=== PATIENT | female | born 1995 | race Caucasian/White ===

== ENCOUNTER 2019-05-04 12:20 | Emergency (ER) | payer BC ==
[~2019-05-04] VITALS: Ht 167.7 cm; Wt 102.2 kg
[2019-05-04] MEDS ORDERED: PROCHLORPERAZINE 10 MG/2ML INJ (COMPAZINE) IM ONE (12:45)
[2019-05-04] MEDS ORDERED: diphenhydrAMINE 50 MG/ML INJ (BENADRYL) IM ONE (12:45)
[2019-05-04] MEDS ORDERED: KETOROLAC 60 MG/2 ML VIAL IM ONE (12:45)
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
[2019-05-04 13:34] VITALS: BP 118/83
--- OUTSIDE RECORDS SUMMARY | 2019-05-29 08:00 | XMS REPORT | Continuity of Care Document ---
Author Organization Unknown Address Unknown Phone Unavailable Allergies Active Description Code Type Severity Reaction Onset Reported/Identified Relationship to Patient Clinical Status Yes No Known Drug Allergies [id number] Drug Allergy Unknown N/A 05/04/2019 Medications There is no data. Problems Date Dx Coded Attending Type Code Diagnosis Diagnosed By 05/09/2019 HELADIO YOUNG APRN Ot R51 HEADACHE Procedures There is no data. Results There is no data. Encounters ACCT No. Visit Date/Time Discharge Status Pt. Type Provider Facility Loc./Unit Complaint [id number] 02/28/2019 08:20:00 02/28/2019 23:59: 59 [facility] [id number] 05/04/2019 12:22:00 019 13:40:00 DIS Outpatient HELADIO YOUNG APRN Via [facility] ER NECK PAIN/MIGRAINE
== END 2019-05-04 13:40 | disposition home or self-care (01) ==
LOC: ER 12:22
DX: R51 Headache (principal)
CPT/HCPCS: 96372; 99284

== ENCOUNTER 2019-08-18 16:06 | Emergency (ER) | payer BC ==
[~2019-08-18] VITALS: Ht 167 cm; Wt 117.1 kg
--- NOTE | 2019-08-18 16:20 | ED Cough/URI ---
General Chief Complaint: Respiratory Problems Stated Complaint: SOB,CHEST CONGESTED,COUGHING,DIZZY Source: patient Exam Limitations: no limitations History of Present Illness Date Seen by Provider: Aug 18, 2019 Time Seen by Provider: 16:19 Initial Comments To ER with shortness of breath chest congested coughing dizziness for 2 days, s aw someone yesterday and got Zithromax but is not doing any better yet. History of asthma, has a inhaler at home states that she's been using it quite a bit today without much improvement. Timing/Duration: just prior to arrival Severity/Quality: dry cough Associated Symptoms: cough, shortness of breath Allergies and Home Medications Allergies Coded Allergies: cephalexin (Verified Allergy, Severe, RASH, 08/18/19) Patient Home Medication List Home Medication List Reviewed: Yes Review of Systems Review of Systems Constitutional: see HPI EENTM: see HPI Respiratory: see HPI, cough, short of breath Cardiovascular: no symptoms reported Genitourinary: no symptoms reported Musculoskeletal: no symptoms reported Skin: no symptoms reported Psychiatric/Neurological: No Symptoms Reported Past Vuhszxa-Vopelh-Rfdlsd Hx Patient Social History 2nd Hand Smoke Exposure: No Recent Foreign Travel: No Contact w/Someone Who Travel: No Recent Hopitalizations: No Seasonal Allergies Seasonal Allergies: Yes Past Medical History Surgeries: No Asthma Cardiac: No Neurological: Yes Headaches /Migraines Female Reproductive Disorders: Ovarian Cyst Genitourinary: No Gastrointestinal: No Musculoskeletal: No Endocrine: No HEENT: No Cancer: No Psychosocial: No Integumentary: No Blood Disorders: No Adverse Reaction/Blood Tranf: No Physical Exam Vital Signs - First Documented 08/18/19 16:16 Temp 36.9 Pulse 102 Resp 16 B/P (MAP) 137/88 (104) Pulse Ox 99 O2 Delivery Room Air Capillary Refill : Height: '" Weight: lbs. oz. kg; 36.00 BMI Method: General Appearance: WD/WN, no apparent distress Eyes: Bilateral Eye Normal Inspection, Bilateral Eye PERRL, Bilateral Eye EOMI HEENT: PERRL/EOMI, normal ENT inspection Neck: non-tender, full range of motion Respiratory: lungs clear, normal breath sounds, no respiratory distress, no accessory muscle use Gastrointestinal: normal bowel sounds, soft Neurologic/Psychiatric: alert, normal mood/affect, oriented x 3 Skin: normal color, warm/dry Progress/Results/Core Measures Suspected Sepsis SIRS Temperature: Pulse: Respiratory Rate: Blood Pressure / Mean: Results/Orders Micro Results Microbiology 08/18/19 Influenza Types A,B Antigen (FLAVIO) - Final, Complete My Orders Orders - HELADIO YOUNG APRN Chest Pa/Lat (2 View) (08/18/19 16:17) Influenza A And B Antigens (08/18/19 16:17) Prednisone Tablet (Deltasone Tablet) (08/18/19 16:30) Albuterol/Ipra Inhalation Soln (Duoneb I (08/18/19 16:30) Svn Small Volume Nebulizer (08/18/19 16:17) Ct Chest Wo (08/18/19 16:45) Promethazine/ Codeine Syrup (Phenergan W (08/18/19 17:00) Medications Given in ED Current Medications Medications Dose Ordered Sig/Seamus Route Start Time Stop Time Status Last Admin Dose Admin Albuterol/ Ipratropium 3 ml ONCE ONCE INH 08/18/19 16:30 08/18/19 16:31 DC 08/18/19 16:33 3 ML Prednisone 60 mg ONCE ONCE PO 08/18/19 16:30 08/18/19 16:31 DC 08/18/19 16:47 60 MG Promethazine HCl/ Codeine 5 ml ONCE ONCE PO 08/18/19 17:00 08/18/19 17:01 DC 08/18/19 17:02 5 ML Vital Signs/I&O 08/18/19 08/18/19 16:16 16:33 Temp 36.9 Pulse 102 Resp 16 B/P (MAP) 137/88 (104) Pulse Ox 99 O2 Delivery Room Air Room Air Capillary Refill : Departure Impression Primary Impression: Asthma exacerbation Disposition: HOME, SELF-CARE Condition: Stable Departure-Patient Inst. Decision time for Depature: 16:43 Referrals: NO,LOCAL PHYSICIAN (PCP/Family) Primary Care Physician Patient Instructions: Asthma in Adults Add. Discharge Instructions: 1. Return to ER for any concerns 2. Follow-up with your doctor next week 3. All discharge instructions reviewed with patient and/or family. Voiced understanding. Scripts Prednisone (Prednisone) 20 Mg Tab 40 MG PO DAILY, #6 TAB 0 Refills Prov: HELADIO YOUNG APRN 08/18/19 Work/School Note: Work Release Form Date Seen in the Emergency Department: Aug 18, 2019 Return to Work: Aug 21, 2019 HELADIO YOUNG APRN Aug 18, 2019 16:20
[2019-08-18] MEDS ORDERED: RT-ALBUTEROL/IPRATROPIUM 3 ML (DUONEB) VIAL INH ONE (16:30)
[2019-08-18] MEDS ORDERED: predniSONE 20 MG TAB PO ONE (16:30)
--- NOTE | 2019-08-18 16:32 | Diagnostic Imaging Report ---
HISTORY: Bronchitis, asthma, and strep throat. TECHNIQUE: Two views of the chest. COMPARISON: None. FINDINGS: There are increased airspace opacities in the left lower lobe. No pleural effusion or pneumothorax is seen. The cardiac silhouette is normal in size and contour. IMPRESSION: 1. Airspace opacities in the left lower lobe, may represent infection in the appropriate clinical setting. Dictated by: Dictated on workstation # [id number]
[2019-08-18] MEDS ORDERED: PROMETHAZINE/ CODEINE SYRUP 5 ML UDC PO ONE (17:00)
[2019-08-18] MEDS ORDERED: PRD20T PO (17:09)
[2019-08-18] MEDS ORDERED: PROM5SYR PO (17:09)
--- NOTE | 2019-08-18 17:18 | Diagnostic Imaging Report ---
PROCEDURE: CT chest without contrast. TECHNIQUE: Multiple contiguous axial images were obtained through the chest without the use of intravenous contrast. Auto Exposure Controls were utilized during the CT exam to meet ALARA standards for radiation dose reduction. INDICATION: Cough, strep throat. FINDINGS: No pleural effusion or empyema. There is trace alvino-fissural atelectasis in the lingula. Lungs are otherwise clear and well expanded. No focal consolidation. No lung mass. No pleural or pericardial effusion. There is a small amount of residual thymic tissue in the anterior mediastinum. No evidence for adenopathy within the hardik or mediastinum. The thoracic inlet is unremarkable. Supraclavicular fossa is unremarkable. No bony destructive process. The visualized upper abdomen is unremarkable. IMPRESSION: Unremarkable chest CT. Dictated by: Dictated on workstation # [id number]
[2019-08-18 17:23] VITALS: BP 137/88
--- OUTSIDE RECORDS SUMMARY | 2019-08-19 00:03 | XMS REPORT | Continuity of Care Document ---
Author Organization Unknown Address Unknown Phone Unavailable Allergies Active Description Code Type Severity Reaction Onset Reported/Identified Relationship to Patient Clinical Status Yes No Known Drug Allergies [id number] Drug Allergy Unknown N/A 05/04/2019 Yes cephalexin [id number] Drug Allerg y Severe RASH 08/18/2019 Medications There is no data. Problems Date Dx Coded Attending Type Code Diagnosis Diagnosed By 05/04/2019 HELADIO YOUNG APRN Ot R51 HEADACHE 05/09/2019 HELADIO YOUNG APRN Ot R51 HEADACHE Procedures There is no data. Results Test Result Range Influenza virus A and B antigen detectio n - 08/18/19 16:24 FLU RESULT NEGATIVE FOR INFLUENZA A AND B ANTIGENS BY [facility] NRG Encounters ACCT No. Visit Date/Time Discharge Status Pt. Type Provider Facility Loc./Unit Complaint [id number] 08/18/2019 16:08:00 020 17:23:00 DIS Emergency HELADIO YOUNG APRN Via [facility] ER SOB,CHEST CONGESTED,COU GHING,DIZZY [id number] 05/04/2019 12:22:00 019 13:40:00 DIS Emergency HELADIO YOUNG APRN Via [facility] ER NECK PAIN/MIGRAINE [id number] 06/02/2019 15:20:00 06/02/2019 23:59: 59 [facility]
== END 2019-08-18 17:23 | disposition home or self-care (01) ==
LOC: EDUNIT# 16:06 → ER 16:08
DX: J45.901 Unspecified asthma with (acute) exacerbation (principal); Z88.1 Allergy status to other antibiotic agents
CPT/HCPCS: 71046; 71250; 87804; 94640

== ENCOUNTER 2020-01-14 14:57 | Emergency (ER) | payer BC ==
[~2020-01-14] VITALS: Ht 167 cm; Wt 116.0 kg
[~2020-01-14 14:57] MED LIST: PRD20T PO; PROM5SYR PO
[2020-01-14 15:35] LABS: BASOPHILS # (AUTO) 0.1 10^3/uL (0.0-0.1); BASOPHILS % (AUTO) 1 % (0-10); EOSINOPHILS # (AUTO) 0.2 10^3/uL (0.0-0.3); EOSINOPHILS % (AUTO) 3 % (0-10); HEMATOCRIT 42 % (35-52); HEMOGLOBIN 14.2 G/DL (11.5-16.0); LYMPHOCYTES # (AUTO) 2.4 X 10^3 (1.0-4.0); LYMPHOCYTES % (AUTO) 26 % (12-44); MEAN CORPUSCULAR HEMOGLOBIN 31 PG (25-34); MEAN CORPUSCULAR HGB CONC 34 G/DL (32-36); MEAN CORPUSCULAR VOLUME 90 FL (80-99); MEAN PLATELET VOLUME 9.7 FL (7.4-10.4); MONOCYTES # (AUTO) 1.1 X 10^3 (0.0-1.0); MONOCYTES % (AUTO) 12 % (0-12); NEUTROPHILS # (AUTO) 5.5 X 10^3 (1.8-7.8); NEUTROPHILS % (AUTO) 60 % (42-75); PLATELET COUNT 438 10^3/uL (130-400); RED CELL DISTRIBUTION WIDTH 13.3 % (10.0-14.5); WHITE BLOOD COUNT 9.2 10^3/uL (4.3-11.0)
--- NOTE | 2020-01-14 15:48 | Diagnostic Imaging Report ---
Indication: Shortness of breath Portable chest 3:31 PM Heart size and pulmonary vascularity are normal. Lungs are clear. There are no effusions or pneumothoraces. IMPRESSION: Negative chest Dictated by: Dictated on workstation # [id number]
[2020-01-14 15:52] LABS: ALANINE AMINOTRANSFERASE 20 U/L (0-55); ALBUMIN 4.3 GM/DL (3.2-4.5); ALKALINE PHOSPHATASE 76 U/L (40-136); BILIRUBIN,TOTAL 0.2 MG/DL (0.1-1.0); BUN/CREATININE RATIO 16; CALCIUM 9.9 MG/DL (8.5-10.1); CARBON DIOXIDE 21 MMOL/L (21-32); CHLORIDE 105 MMOL/L (98-107); GFR ESTIMATED > 60; GLUCOSE 114 MG/DL (70-105); POTASSIUM 4.6 MMOL/L (3.6-5.0); SODIUM 139 MMOL/L (135-145); TOTAL PROTEIN 7.9 GM/DL (6.4-8.2)
[2020-01-14 15:56] LABS: ERYTHROCYTE SEDIMENTATION RATE 20 MM/HR (0-20)
--- OUTSIDE RECORDS SUMMARY | 2020-01-14 15:57 | XMS REPORT | Continuity of Care Document ---
Author Organization Unknown Address Unknown Phone Unavailable Allergies Active Description Code Type Severity Reaction Onset Reported/Identified Relationship to Patient Clinical Status Yes No Known Drug Allergies [id number] Drug Allergy Unknown N/A 05/04/2019 Yes cephalexin [id number] Drug Allerg y Severe RASH 08/18/2019 Medications There is no data. Problems Date Dx Coded Attending Type Code Diagnosis Diagnosed By 05/04/2019 HELADIO YOUNG APRN Ot R51 HEADACHE 05/09/2019 HELADIO YOUNG APRN Ot R51 HEADACHE 08/18/2019 HELADIO YOUNG APRN Ot J45.901 UNSPECIFIED ASTHMA WITH (ACUTE) EXACERBA 08/18/2019 HELADIO YOUNG APRN Ot R05 COUGH 08/18/2019 HELADIO YOUNG APRN Ot Z88 .1 ALLERGY STATUS TO OTHER ANTIBIOTIC AGENT 08/21/2019 HELADIO YOUNG APRN Ot J45.901 UNSPECIFIED ASTHMA WITH (ACUTE) EXACERBA 08/21/2019 HELADIO YOUNG APRN Ot R05 COUGH 08/21/2019 HELADIO YOUNG APRN Ot Z88 .1 ALLERGY STATUS TO OTHER ANTIBIOTIC AGENT Procedures There is no data. Results Test Result Range Influenza virus A and B antigen detectio n - 08/18/19 16:24 FLU RESULT NEGATIVE FOR INFLUENZA A AND B ANTIGENS BY [facility] Complete blood count (CBC) with automate d white blood cell (WBC) differential - 01/14/20 15:14 Blood leukocytes automated count (number/volume) 9.2 10*3/uL 4.3-11.0 Blood erythrocytes automated count (number/volume) 4.66 10*6/uL 4.35-5.85 Venous blood hemoglobin measurement (mass/volume) 14.2 g/dL 11.5-16.0 Blood hematocrit (volume fraction) 42 % 35-52 Automated erythrocyte mean corpuscular volume 90 [ foz_us] 80-99 Automated erythrocyte mean corpuscular h emoglobin (mass per erythrocyte) 31 pg 25-34 Automated erythrocyte mean corpuscular h emoglobin concentration measurement (mass/volume) 34 g/dL 32-36 Automated erythrocyte distribution width ratio 13. 3 % 10.0- 14.5 Automated blood platelet count (count/volume) 438 10*3/uL 130-400 Automated blood platelet mean volume measurement 9.7 [foz_us] 7.4-10.4 Automated blood neutrophils/100 leukocytes 60 % 42-75 Automated blood lymphocytes/100 leukocytes 26 % 12-44 Blood monocytes/100 leukocytes 12 % 0-12 Automated blood eosinophils/100 leukocytes 3 % 0-10 Automated blood basophils/100 leukocytes 1 % 0-10 Blood neutrophils automated count (number/volume) 5.5 10*3 1.8-7.8 Blood lymphocytes automated count (number/volume) 2.4 10*3 1.0-4.0 Blood monocytes automated count (number/volume) 1. 1 10*3 0.0-1.0 Automated eosinophil count 0.2 10*3/uL 0 .0-0.3 Automated blood basophil count (count/volume) 0.1 10*3/uL 0.0-0.1 Comprehensive metabolic panel - 01/14/20 15:14 Serum or plasma sodium measurement (moles/volume) 139 mmol/L 135-145 Serum or plasma potassium measurement (moles/volume) 4.6 mmol/L 3.6-5.0 Serum or plasma chloride measurement (moles/volume) 105 mmol/L 98-107 Carbon dioxide 21 mmol/L 21-32 Serum or plasma anion gap determination (moles/volume) 13 mmol/L 5-14 Serum or plasma urea nitrogen measurement (mass/volume ) 11 mg/dL 7-18 Serum or plasma creatinine measurement (mass/volume) 0.70 mg/dL 0.60-1.30 Serum or plasma urea nitrogen/creatinine mass ratio 16 NRG Serum or plasma creatinine measurement w ith calculation of estimated glomerular filtration rate > NRG Serum or plasma glucose measurement (mass/volume) 114 mg/dL 70-105 Serum or plasma calcium measurement (mass/volume) 9.9 mg/dL 8.5-10.1 Serum or plasma total bilirubin measurement (mass/volu me) 0.2 mg/dL 0.1-1.0 Serum or plasma alkaline phosphatase quang surement (enzymatic activity/volume) 76 U/L 40-136 Serum or plasma aspartate aminotransfera se measurement (enzymatic activity/volume) 15 U/L 5-34 Serum or plasma alanine aminotransferase measurement (enzymatic activity/volume) 20 U/L 0-55 Serum or plasma protein measurement (mass/volume) 7.9 g/dL 6.4-8.2 Serum or plasma albumin measurement (mass/volume) 4.3 g/dL 3.2-4.5 CALCIUM CORRECTED 9.7 mg/dL 8.5-10.1 Serum ragweed IgE antibody assay - 01/13 15:14 Serum ragweed IgE antibody assay 217 U/L 125-220 Serum or plasma C reactive protein measu rement (mass/volume) - 01/14/20 15:14 Serum or plasma C reactive protein measurement (mass/v olume) 0.93 mg/dL 0.00-0.50 Encounters ACCT No. Visit Date/Time Discharge Status Pt. Type Provider Facility Loc./Unit Complaint [id number] 08/18/2019 16:08:00 020 17:23:00 DIS Emergency HELADIO YOUNG APRN Via [facility] ER SOB,CHEST CONGESTED,COU GHING,DIZZY [id number] 05/04/2019 12:22:00 019 13:40:00 DIS Emergency HELADIO YOUNG APRN Via [facility] ER NECK PAIN/MIGRAINE [id number] 01/14/2020 15:35:00 Document Registration
--- NOTE | 2020-01-14 16:05 | ED Respiratory ---
General Chief Complaint: Respiratory Problems Stated Complaint: SOA Nursing Triage Note: ARRIVED VIA AMB TO ROOM 10. COMPLAINS OF SOA, DIARRHEA, SORE THROAT, AND CHILLS X3 DAYS. STATES SHE WORKS IN A [facility] WHERE 33 RESIDENTS ARE COVID POSITIVE. Source: patient Exam Limitations: no limitations History of Present Illness Date Seen by Provider: Jan 14, 2020 Time Seen by Provider: 15:15 Initial Comments Patient works that [facility] where there are apparently 33 residents and staff at her COVID positive. She has had cold- like symptoms including sore throat, runny nose, fevers, chills and body aches as well as shortness of air over the last 3 days. She is concerned about being COVID 19 positive. She did have test at [facility] yesterday but has not heard the results. She states she is more short of air today and feels terrible. Timing/Duration: getting worse, other (3 days) Severity: moderate Prior Episodes/Possible Cause: no prior episodes Associated Symptoms: cough, fever/chills, muscle aches, nasal congestion, nasal drainage, shortness of breath, sore throat Allergies and Home Medications Allergies Coded Allergies: cephalexin (Verified Allergy, Severe, RASH, 08/18/19) Home Medications No Active Prescriptions or Reported Meds Patient Home Medication List Home Medication List Reviewed: Yes Review of Systems Review of Systems Constitutional: see HPI, chills, fever EENTM: see HPI Respiratory: see HPI Cardiovascular: no symptoms reported Gastrointestinal: No abdominal pain, No nausea, No vomiting Genitourinary: no symptoms reported Musculoskeletal: no symptoms reported Psychiatric/Neurological: Anxiety; Denies Weakness All Other Systems Reviewed Negative Unless Noted: Yes Past Bcvnrqd-Tgapez-Vbyaqm Hx Past Med/Social Hx: Reviewed Nursing Past Med/Soc Hx Patient Social History Alcohol Use: Denies Use Recreational Drug Use: No Smoking Status: Never a Smoker 2nd Hand Smoke Exposure: No Recent Foreign Travel: No Contact w/Someone Who Travel: No Recent Infectious Disease Expo: No Recent Hopitalizations: No Seasonal Allergies Seasonal Allergies: Yes Past Medical History Surgeries: No Asthma Cardiac: No Neurological: Yes Headaches /Migraines Female Reproductive Disorders: Ovarian Cyst Genitourinary: No Gastrointestinal: No Musculoskeletal: No Endocrine: No HEENT: No Cancer: No Psychosocial: No Integumentary: No Blood Disorders: No Adverse Reaction/Blood Tranf: No Family Medical History Reviewed Nursing Family Hx Physical Exam Vital Signs - First Documented 01/14/20 15:00 Temp 36.9 Pulse 111 Resp 20 B/P (MAP) 162/95 (117) Pulse Ox 100 O2 Delivery Room Air Capillary Refill : Less Than 3 Seconds Height: '" Weight: lbs. oz. kg; 41.00 BMI Method: General Appearance: WD/WN, no apparent distress HEENT: PERRL/EOMI, pharynx normal Neck: full range of motion, supple Respiratory: lungs clear, normal breath sounds Cardiovascular: regular rate, rhythm, no murmur Gastrointestinal: non tender, soft Extremities: non-tender, normal inspection Neurologic/Psychiatric: alert, oriented x 3 Skin: normal color, warm/dry Progress/Results/Core Measures Suspected Sepsis Recent Fever Within 48 Hours: Yes Infection Criteria Present: Suspected New Infection New/Unexplained Altered Menta: No Sepsis Screen: Possible Severe Sepsis Risk SIRS Temperature: Pulse: 111 Respiratory Rate: 20 Laboratory Tests 01/14/20 15:14: White Blood Count 9.2 Blood Pressure 162 /95 Mean: 117 Laboratory Tests 01/14/20 15:14: Creatinine 0.70, Platelet Count 438H, Total Bilirubin 0.2 Results/Orders Lab Results Laboratory Tests Test 01/14/20 15:14 01/14/20 15:28 Range/Units White Blood Count 9.2 4.3-11.0 10^3/uL Red Blood Count 4.66 4.35-5.85 10^6/uL Hemoglobin 14.2 11.5-16.0 G/DL Hematocrit 42 35-52 % Mean Corpuscular Volume 90 80-99 FL Mean Corpuscular Hemoglobin 31 25-34 PG Mean Corpuscular Hemoglobin Concent 34 32-36 G/DL Red Cell Distribution Width 13.3 10.0-14.5 % Platelet Count 438 H 130-400 10^3/uL Mean Platelet Volume 9.7 7.4-10.4 FL Neutrophils (%) (Auto) 60 42-75 % Lymphocytes (%) (Auto) 26 12-44 % Monocytes (%) (Auto) 12 0-12 % Eosinophils (%) (Auto) 3 0-10 % Basophils (%) (Auto) 1 0-10 % Neutrophils # (Auto) 5.5 1.8-7.8 X 10^3 Lymphocytes # (Auto) 2.4 1.0-4.0 X 10^3 Monocytes # (Auto) 1.1 H 0.0-1.0 X 10^3 Eosinophils # (Auto) 0.2 0.0-0.3 10^3/uL Basophils # (Auto) 0.1 0.0-0.1 10^3/uL Erythrocyte Sedimentation Rate 20 0-20 MM/HR D-Dimer 0.45 0.00-0.49 UG/ML Sodium Level 139 135-145 MMOL/L Potassium Level 4.6 3.6-5.0 MMOL/L Chloride Level 105 98-107 MMOL/L Carbon Dioxide Level 21 21-32 MMOL/L Anion Gap 13 5-14 MMOL/L Blood Urea Nitrogen 11 7-18 MG/DL Creatinine 0.70 0.60-1.30 MG/DL Estimat Glomerular Filtration Rate > 60 BUN/Creatinine Ratio 16 Glucose Level 114 H 70-105 MG/DL Calcium Level 9.9 8.5-10.1 MG/DL Corrected Calcium 9.7 8.5-10.1 MG/DL Total Bilirubin 0.2 0.1-1.0 MG/DL Aspartate Amino Transf (AST/SGOT) 15 5-34 U/L Alanine Aminotransferase (ALT/SGPT) 20 0-55 U/L Alkaline Phosphatase 76 40-136 U/L Lactate Dehydrogenase 217 125-220 U/L C-Reactive Protein High Sensitivity 0.93 H 0.00-0.50 MG/DL Total Protein 7.9 6.4-8.2 GM/DL Albumin 4.3 3.2-4.5 GM/DL Procalcitonin 0.02 <0.10 NG/ML My Orders Orders - NANCY YANG MD Cbc With Automated Diff (01/14/20 15:20) Comprehensive Metabolic Panel (01/14/20 15:20) Hs C Reactive Protein (01/14/20 15:20) Fibrin Degradation Products (01/14/20 15:20) Procalcitonin (Pct) (01/14/20 15:20) Erythrocyte Sedimentation Rate (01/14/20 15:20) LDH (01/14/20 15:20) Chest 1 View, Ap/Pa Only (01/14/20 15:27) Vital Signs/I&O 01/14/20 15:00 Temp 36.9 Pulse 111 Resp 20 B/P (MAP) 162/95 (117) Pulse Ox 100 O2 Delivery Room Air Capillary Refill : Less Than 3 Seconds Blood Pressure Mean: 117 Progress Note : Progress Note Seen and evaluated. IV, labs, chest x-ray and COVID-19 swab obtained. Monitor patient. 1625: I did discuss the case with [facility] and her swab results are not back. We will continue with our testing here. I did discuss COVID-19 quarantine and isolation restrictions and informed her that she is assumed to have COVID-19 currently and she will need to remain quarantine didn't help results are back and then per the direction of the health department or follow- up instructions. Patient verbalize understanding. Discharged home with return precautions. Patient verbalize understanding instructions and agreement with plan. O2 sat 99% on room air. Diagnostic Imaging Diagonstic Imaging: Xray Plain Films/CT/US/NM/MRI: chest Comments [facility], [place] NAME: GAGANDEEP PENNY [facility] REC#: [id number] PT STATUS: REG ER : 1995 PHYSICIAN: NANCY YANG MD ADMIT DATE: 01/14/20/ER Signed Date of Exam:01/14/20 CHEST 1 VIEW, AP/PA ONLY Indication: Shortness of breath Portable chest 3:31 PM Heart size and pulmonary vascularity are normal. Lungs are clear. There are no effusions or pneumothoraces. IMPRESSION: Negative chest Dictated by: Dictated on workstation # [id number] Dict: 01/14/20 1546 Trans: 01/14/20 1547 [id number] Interpreted by: NANCY ESPINAL MD Electronically signed by: NANCY ESPINAL MD 01/14/20 1547 Reviewed: Reviewed by Me Departure Impression Primary Impression: Viral infection Additional Impression: COVID-19 evaluation Disposition: 01 HOME, SELF-CARE Condition: Stable Departure-Patient Inst. Decision time for Depature: 16:31 Referrals: NO,LOCAL PHYSICIAN (PCP/Family) Primary Care Physician Patient Instructions: Coronavirus Disease 2019 (COVID-19) (DC), Viral Syndrome (DC) Add. Discharge Instructions: All discharge instructions reviewed with patient and/or family. Voiced understanding. Drink plenty of fluids and get plenty of rest. You will need to remain on quarantine until test results are noted. If they are negative, you will need to be isolated for 3 days after symptoms resolve. If they are positive, the health department will call you and direct isolation timeframe. You may take ibuprofen 600 mg every 8 hours as needed for fever or pain. You may take Tylenol/acetaminophen 1000 mg every 8 hours as needed for fever.. Return for worse pain, fever, vomiting, weakness, breathing problems or other concerns as needed. Follow-up with your Dr. as needed but blood them know about your concerns for symptoms. Scripts No Active Prescriptions or Reported Meds Copy Copies To 1: SHANTELLE FERREIRA TIMOTHY D MD Jan 14, 2020 16:05
--- NOTE | 2020-01-14 16:23 | NUR ---
IN TALKING TO THE PT AT THIS TIME.
[2020-01-14 16:41] VITALS: BP 120/84
[2020-01-15] MEDS ORDERED: ONDA4TAB11 PO (17:14)
[2020-01-15] MEDS ORDERED: PROM25TA14 PO (17:31)
== END 2020-01-14 16:41 | disposition home or self-care (01) ==
LOC: EDUNIT# 14:57 → ER 14:58
DX: B34.9 Viral infection, unspecified (principal); Z88.1 Allergy status to other antibiotic agents; U07.1 COVID-19
CPT/HCPCS: 71045; 80053; 83615; 84145; 85025; 85379; 85652; 86141; 99284; U0002; 36415; 87635

== ENCOUNTER 2020-01-15 14:40 | Emergency (ER) | payer BC ==
[~2020-01-15] VITALS: Ht 167.7 cm; Wt 114.7 kg
[2020-01-15] MEDS ORDERED: LACTATED RINGERS 1,000 ML IV ONE (15:11)
[2020-01-15] MEDS ORDERED: ONDANSETRON 4 MG/2 ML (SDV) Z0FRAN IVP ONE (15:15)
[2020-01-15] MEDS ORDERED: LACTATED RINGERS 1,000 ML IV SCH (15:15)
[2020-01-15] MEDS ORDERED: KETOROLAC 30 MG/ML VIAL IVP ONE (15:15)
[2020-01-15] MEDS ORDERED: PANTOPRAZOLE 40 MG (PROTONIX) VIAL IV ONE (15:15)
--- NOTE | 2020-01-15 15:15 | ED Abdominal Pain ---
General Chief Complaint: Fever-Adult/Adol Stated Complaint: COVID SYMPTOMS/COVID + Nursing Triage Note: Pt reports being COVID-19 positive. Pt c/o YEPEZ, abdominal pain, SOB, and periodic fever. Pt last took tylenol, IBU, excedrin and bendryl at noon today. Pt crying during assessment and reports worsening symptoms. Sepsis Screen: Possible Severe Sepsis Risk Source of Information: Patient Exam Limitations: No Limitations History of Present Illness Date Seen by Provider: Jan 15, 2020 Time Seen by Provider: 14:49 Initial Comments Patient presents ER by private conveyance with chief complaint that yesterday she was seen in the ER and diagnosed with COVID-19. She is having worsening shortness of breath, epigastric abdominal pain after nausea and vomiting all night and diarrhea. She has been unable to keep any fluids down. She does not have anything for nausea. She is not on any antibiotics or treatment at this time. She does not have a primary care doctor or any significant medical history except for asthma. Allergies and Home Medications Allergies Coded Allergies: cephalexin (Verified Allergy, Severe, RASH, 08/18/19) Home Medications Ondansetron 4 Mg Tab.rapdis, 4 MG PO Q6H PRN for NAUSEA/VOMITING Prescribed by: MARCELO BARRETT on 01/15/20 0944 Patient Home Medication List Home Medication List Reviewed: Yes Review of Systems Review of Systems Constitutional: chills, fever, malaise EENTM: No Blurred Vision, No Double Vision Respiratory: Cough, Shortness of Air Cardiovascular: Denies Chest Pain, Denies Edema Gastrointestinal: Denies Abdomen Distended, Denies Abdominal Pain Genitourinary: Denies Burning, Denies Frequency Musculoskeletal: No back pain, No joint pain Skin: No pruritus, No rash Psychiatric/Neurological: Denies Headache, Denies Numbness All Other Systems Reviewed Negative Unless Noted: Yes Past Axqtksx-Ycxgmi-Ithyhn Hx Patient Social History Alcohol Use: Denies Use Recreational Drug Use: No Smoking Status: Never a Smoker 2nd Hand Smoke Exposure: No Recent Foreign Travel: No Contact w/Someone Who Travel: No Recent Infectious Disease Expo: Yes (pt reports [place] COVID-19 from work) Recent Hopitalizations: No Seasonal Allergies Seasonal Allergies: Yes Past Medical History Surgeries: No Asthma Cardiac: No Neurological: Yes Headaches /Migraines Female Reproductive Disorders: Ovarian Cyst Genitourinary: No Gastrointestinal: No Musculoskeletal: No Endocrine: No HEENT: No Cancer: No Psychosocial: No Integumentary: No Blood Disorders: No Adverse Reaction/Blood Tranf: No Physical Exam Vital Signs Vital Signs - First Documented 01/15/20 14:40 Temp 37.3 Pulse 103 Resp 30 B/P (MAP) 140/88 (105) Pulse Ox 97 O2 Delivery Room Air Capillary Refill : Less Than 3 Seconds Height/Weight/BMI Height: '" Weight: lbs. oz. kg; 40.00 BMI Method: General Appearance: WD/WN, mild distress HEENT: PERRL/EOMI, pharynx normal Neck: full range of motion, normal inspection Respiratory: lungs clear, normal breath sounds, no respiratory distress, no accessory muscle use Cardiovascular: normal peripheral pulses, regular rate, rhythm, no edema Peripheral Pulses: 2+ Radial Pulses (R), 2+ Radial Pulses (L) Gastrointestinal: normal bowel sounds, non tender, soft Extremities: normal range of motion, non-tender, normal inspection, normal capillary refill Neurologic/Psychiatric: alert, normal mood/affect, oriented x 3 Skin: normal color, warm/dry Progress/Results/Core Measures Results/Orders Lab Results Laboratory Tests Test 01/15/20 15:05 01/15/20 15:25 01/15/20 16:15 Range/Units Urine Color YELLOW Urine Clarity SL CLOUDY Urine pH 7.0 5-9 Urine Specific [place] 1.020 1.016-1.022 Urine Protein NEGATIVE NEGATIVE Urine Glucose (UA) NEGATIVE NEGATIVE Urine Ketones NEGATIVE NEGATIVE Urine Nitrite NEGATIVE NEGATIVE Urine Bilirubin NEGATIVE NEGATIVE Urine Urobilinogen 0.2 < = 1.0 MG/DL Urine Leukocyte Esterase NEGATIVE NEGATIVE Urine RBC (Auto) NEGATIVE NEGATIVE Urine RBC 0-2 /HPF Urine WBC 0-2 /HPF Urine Squamous Epithelial Cells 5-10 /HPF Urine Crystals PRESENT H /LPF Urine Amorphous Sediment LARGE [place] PHOSPHATE H /LPF Urine Bacteria TRACE /HPF Urine Casts NONE /LPF Urine Mucus NEGATIVE /LPF Urine Culture Indicated NO White Blood Count 7.7 4.3-11.0 10^3/uL Red Blood Count 4.60 4.35-5.85 10^6/uL Hemoglobin 14.0 11.5-16.0 G/DL Hematocrit 41 35-52 % Mean Corpuscular Volume 90 80-99 FL Mean Corpuscular Hemoglobin 30 25-34 PG Mean Corpuscular Hemoglobin Concent 34 32-36 G/DL Red Cell Distribution Width 13.4 10.0-14.5 % Platelet Count 371 130-400 10^3/uL Mean Platelet Volume 9.3 7.4-10.4 FL Neutrophils (%) (Auto) 75 42-75 % Lymphocytes (%) (Auto) 10 L 12-44 % Monocytes (%) (Auto) 13 H 0-12 % Eosinophils (%) (Auto) 2 0-10 % Basophils (%) (Auto) 1 0-10 % Neutrophils # (Auto) 5.7 1.8-7.8 X 10^3 Lymphocytes # (Auto) 0.8 L 1.0-4.0 X 10^3 Monocytes # (Auto) 1.0 0.0-1.0 X 10^3 Eosinophils # (Auto) 0.2 0.0-0.3 10^3/uL Basophils # (Auto) 0.0 0.0-0.1 10^3/uL Sodium Level 139 135-145 MMOL/L Potassium Level 3.9 3.6-5.0 MMOL/L Chloride Level 106 98-107 MMOL/L Carbon Dioxide Level 25 21-32 MMOL/L Anion Gap 8 5-14 MMOL/L Blood Urea Nitrogen 14 7-18 MG/DL Creatinine 0.69 0.60-1.30 MG/DL Estimat Glomerular Filtration Rate > 60 BUN/Creatinine Ratio 20 Glucose Level 91 70-105 MG/DL Calcium Level 9.4 8.5-10.1 MG/DL Corrected Calcium 9.2 8.5-10.1 MG/DL Total Bilirubin 0.2 0.1-1.0 MG/DL Aspartate Amino Transf (AST/SGOT) 13 5-34 U/L Alanine Aminotransferase (ALT/SGPT) 21 0-55 U/L Alkaline Phosphatase 80 40-136 U/L Total Protein 7.7 6.4-8.2 GM/DL Albumin 4.3 3.2-4.5 GM/DL Lipase 17 8-78 U/L Blood Gas Puncture Site RIGHT RADIAL Blood Gas Patient Temperature 37.3 Arterial Blood pH 7.41 7.37-7.43 Arterial Blood Partial Pressure CO2 39 35-45 MMHG Arterial Blood Partial Pressure O2 93 79-93 MMHG Arterial Blood HCO3 24 23-27 MMOL/L Arterial Blood Total CO2 25.6 21.0-31.0 MMOL/L Arterial Blood Oxygen Saturation 97 94-100 % Arterial Blood Base Excess 0.4 -2.5-2.5 MMOL/L Demarco Test POSITIVE Blood Gas Ventilator Setting NO Blood Gas Inspired Oxygen N/A My Orders Orders - MARCELO BARRETT Ua Culture If Indicated (01/15/20 14:48) Urine Bedside (01/15/20 14:48) Cbc With Automated Diff (01/15/20 15:11) Comprehensive Metabolic Panel (01/15/20 15:11) Chest 1 View, Ap/Pa Only (01/15/20 15:11) Ketorolac Injection (Toradol Injection) (01/15/20 15:15) Ondansetron Injection (Zofran Injectio (01/15/20 15:15) Ed Iv/Invasive Line Start (01/15/20 15:11) Lactated Ringers (Lr 1000 Ml Iv Solution (01/15/20 15:11) Lactated Ringers (Lr 1000 Ml Iv Solution (01/15/20 15:15) Lipase (01/15/20 15:11) Pantoprazole Injection (Protonix Injecti (01/15/20 15:15) Arterial Blood Gas (01/15/20 16:20) Medications Given in ED Current Medications Medications Dose Ordered Sig/Seamus Route Start Time Stop Time Status Last Admin Dose Admin Ketorolac Tromethamine 30 mg ONCE ONCE IVP 01/15/20 15:15 01/15/20 15:16 DC 01/15/20 16:02 30 MG Lactated Ringer's 1,000 ml @ 0 mls/hr Q0M ONCE IV 01/15/20 15:11 01/15/20 15:14 DC 01/15/20 16:02 1,000 MLS/HR Ondansetron HCl 8 mg ONCE ONCE IVP 01/15/20 15:15 01/15/20 15:16 DC 01/15/20 16:02 8 MG Pantoprazole 40 mg ONCE ONCE IV 01/15/20 15:15 01/15/20 15:16 DC 01/15/20 16:02 40 MG Vital Signs/I&O 01/15/20 14:40 Temp 37.3 Pulse 103 Resp 30 B/P (MAP) 140/88 (105) Pulse Ox 97 O2 Delivery Room Air Blood Pressure Mean: 105 Progress Progress Note : Time: 17:10 Progress Note Ondansetron, Toradol, 2 L of fluids. She needs help with symptom management. She does not have any acute respiratory distress. Her oxygen sats are 97-100% on room air. We will obtain some basic labs, ABG and a chest x-ray to confirm our suspicion that she only needs help with symptom management at this time. Patient has unremarkable labs, imaging and ABG. Plan to set her up with Phenergan, ondansetron and Imodium. Patient states she feels much better after the intervention and does not need anything else for nausea or pain at this time. She is in agreement with this plan. Diagnostic Imaging Diagonstic Imaging: Xray Plain Films/CT/US/NM/MRI: chest [facility] [place], [place] NAME: GAGANDEEP PENNY [facility] REC#: [id number] PT STATUS: REG ER : 1995 PHYSICIAN: MARCELO BARRETT MD ADMIT DATE: 01/15/20/ER Signed Date of Exam:01/15/20 CHEST 1 VIEW, AP/PA ONLY INDICATION: soa COMPARISON: 01/14/2020. FINDINGS: Single frontal view of the chest demonstrates normal heart size and pulmonary vascularity. The lungs are well aerated and clear. No large pleural effusion or pneumothorax is seen. The visualized osseous structures show no acute abnormalities. IMPRESSION: 1. No acute cardiopulmonary process. Dictated by: Dictated on workstation # [id number] Dict: 01/15/20 1627 Trans: 01/15/20 1702 [id number] Interpreted by: MALLORY MALLORY MD Electronically signed by: MALLORY MALLORY MD 01/15/20 1701 Reviewed: Reviewed by Me Departure Impression Primary Impression: COVID-19 virus detected Additional Impressions: Nausea & vomiting Qualified Codes: R11.2 - Nausea with vomiting, unspecified Diarrhea due to COVID-19 Disposition: 01 HOME, SELF-CARE Condition: Improved Departure-Patient Inst. Decision time for Depature: 16:56 Referrals: NO,LOCAL PHYSICIAN (PCP/Family) Primary Care Physician Patient Instructions: Viral Gastroenteritis, Coronavirus Disease 2019 (COVID- 19) (DC) Add. Discharge Instructions: Drink lots of fluids. Sports drinks are encouraged. Tylenol 1000 mg every 8 hours as necessary for pain or fever. Ibuprofen 800 mg every 8 hours as necessary for pain or fever. Ondansetron one tablet every 6 hours as necessary for nausea or vomiting. Phenergan 1 tablet every 6 hours as necessary for nausea or vomiting. This may cause some mild drowsiness. Imodium 2 tablets followed by one tablet every 4 hours afterwards that he still having loose, watery stools. If he cannot control your symptoms or are having severe shortness of breath then please return to the ER promptly. All discharge instructions reviewed with patient and/or family. Voiced kunal walden. Scripts Promethazine HCl (Promethazine Tablet) 25 Mg Tablet 25 MG PO Q6H PRN for NAUSEA/VOMITING, #20 TAB 0 Refills Prov: MARCELO BARRETT 01/15/20 Ondansetron (Ondansetron Odt) 4 Mg Tab.rapdis 4 MG PO Q6H PRN for NAUSEA/VOMITING, #20 TAB 0 Refills Prov: MARCELO BARRETT 01/15/20 MARCELO BARRETT Jan 15, 2020 15:15
[2020-01-15 15:27] LABS: BILIRUBIN,URINE NEGATIVE (NEGATIVE); CLARITY,URINE SL CLOUDY; COLOR,URINE YELLOW; GLUCOSE, URINE (UA) NEGATIVE (NEGATIVE); KETONES,URINE NEGATIVE (NEGATIVE); LEUKOCYTE ESTERASE ,URINE NEGATIVE (NEGATIVE); NITRITE,URINE NEGATIVE (NEGATIVE); PROTEIN,URINE NEGATIVE (NEGATIVE)
[2020-01-15 15:36] LABS: AMORPHOUS SEDIMENT,UR LARGE AMOR PHOSPHATE /LPF; BACTERIA,URINE TRACE /HPF; RBC,URINE 0-2 /HPF; WBC,URINE 0-2 /HPF
[2020-01-15 15:41] LABS: BASOPHILS % (AUTO) 1 % (0-10); EOSINOPHILS # (AUTO) 0.2 10^3/uL (0.0-0.3); EOSINOPHILS % (AUTO) 2 % (0-10); HEMATOCRIT 41 % (35-52); LYMPHOCYTES # (AUTO) 0.8 X 10^3 (1.0-4.0); LYMPHOCYTES % (AUTO) 10 % (12-44); MEAN CORPUSCULAR HEMOGLOBIN 30 PG (25-34); MEAN CORPUSCULAR HGB CONC 34 G/DL (32-36); MEAN CORPUSCULAR VOLUME 90 FL (80-99); MEAN PLATELET VOLUME 9.3 FL (7.4-10.4); MONOCYTES % (AUTO) 13 % (0-12); NEUTROPHILS # (AUTO) 5.7 X 10^3 (1.8-7.8); NEUTROPHILS % (AUTO) 75 % (42-75); PLATELET COUNT 371 10^3/uL (130-400); RED CELL DISTRIBUTION WIDTH 13.4 % (10.0-14.5); WHITE BLOOD COUNT 7.7 10^3/uL (4.3-11.0)
[2020-01-15 16:01] LABS: ALANINE AMINOTRANSFERASE 21 U/L (0-55); ALBUMIN 4.3 GM/DL (3.2-4.5); ALKALINE PHOSPHATASE 80 U/L (40-136); BILIRUBIN,TOTAL 0.2 MG/DL (0.1-1.0); BUN/CREATININE RATIO 20; CALCIUM 9.4 MG/DL (8.5-10.1); CARBON DIOXIDE 25 MMOL/L (21-32); CHLORIDE 106 MMOL/L (98-107); CREATININE SERUM 0.69 MG/DL (0.60-1.30); GFR ESTIMATED > 60; GLUCOSE 91 MG/DL (70-105); LIPASE 17 U/L (8-78); POTASSIUM 3.9 MMOL/L (3.6-5.0); SODIUM 139 MMOL/L (135-145); TOTAL PROTEIN 7.7 GM/DL (6.4-8.2)
--- OUTSIDE RECORDS SUMMARY | 2020-01-15 16:13 | XMS REPORT | Continuity of Care Document ---
Author Organization Unknown Address Unknown Phone Unavailable Allergies Active Description Code Type Severity Reaction Onset Reported/Identified Relationship to Patient Clinical Status Yes No Known Drug Allergies [id number] Drug Allergy Unknown N/A 05/04/2019 Yes cephalexin [id number] Drug Allerg y Severe RASH 08/18/2019 Medications [...] INFLUENZA A AND B ANTIGENS BY [facility] Complete blood count (CBC) with automate d [...] ragweed IgE antibody assay 217 U/L 125-220 PROCALCITONIN (PCT) - 01/14/20 15:14 PROCALCITONIN (PCT) 0.02 ng/mL <0.10 Fibrin D-dimer FEU measurement in platel et poor plasma (mass/volume) - 01/14/20 15:14 Fibrin D-dimer FEU measurement in platelet poor plasma (mass/volume) 0.45 ug/mL 0.00-0.49 Erythrocyte sedimentation rate by ramiro gren method - 01/14/20 15:14 Erythrocyte sedimentation rate by westergren method 20 mm 0- 20 Serum or plasma C reactive protein measu rement (mass/volume) - 01/14/20 15:14 Serum or plasma C reactive protein measurement (mass/v olume) 0.93 mg/dL 0.00-0.50 Coronavirus SARS-CoV-2 SO 2019 - 0 15:28 Coronavirus Ab [Units/volume] in Serum DETECTED Not Detecte Complete urinalysis with reflex to cultu re - 01/15/20 15:05 Urine color determination YELLOW NRG Urine clarity determination SL CLOUDY N RG Urine pH measurement by test strip 7.0 5-9 Specific gravity of urine by test strip 1.020 1.016-1.022 Urine protein assay by test strip, semi-quantitative NEGATIVE NEGATIVE Urine glucose detection by automated test strip NE GATIVE NEGATIVE Erythrocytes detection in urine sediment by light micr oscopy NEGATIVE NEGATIVE Urine ketones detection by automated test strip NE GATIVE NEGATIVE Urine nitrite detection by test strip NEGATIVE NEGATIVE Urine total bilirubin detection by test strip NEGA TIVE NEGATIVE Urine urobilinogen measurement by automated test strip (mass/volume) 0.2 mg/dL < = 1.0 Urine leukocyte esterase detection by dipstick NEG ATIVE NEGATIVE Automated urine sediment erythrocyte cou nt by microscopy (number/high power field) [HPF] NRG Automated urine sediment leukocyte count by microscopy (number/high power field) [HPF] NRG Bacteria detection in urine sediment by light microsco py TRACE NRG Squamous epithelial cells detection in u rine sediment by light microscopy 5-10 NRG Crystals detection in urine sediment by light microsco py PRESENT NRG Casts detection in urine sediment by light microscopy NONE NRG Mucus detection in urine sediment by light microscopy NEGATIVE NRG Complete urinalysis with reflex to culture NO NRG Amorphous sediment detection in urine sediment by ligh t microscopy LARGE NADEEM PHOSPHATE NRG Complete blood count (CBC) with automate d white blood cell (WBC) differential - 01/15/20 15:25 Blood leukocytes automated count (number/volume) 7.7 10*3/uL 4.3-11.0 Blood erythrocytes automated count (number/volume) 4.60 10*6/uL 4.35-5.85 Venous blood hemoglobin measurement (mass/volume) 14.0 g/dL 11.5-16.0 Blood hematocrit (volume fraction) 41 % 35-52 Automated erythrocyte mean corpuscular volume 90 [ foz_us] 80-99 Automated erythrocyte mean corpuscular h emoglobin (mass per erythrocyte) 30 pg 25-34 Automated erythrocyte mean corpuscular h emoglobin concentration measurement (mass/volume) 34 g/dL 32-36 Automated erythrocyte distribution width ratio 13. 4 % 10.0- 14.5 Automated blood platelet count (count/volume) 371 10*3/uL 130-400 Automated blood platelet mean volume measurement 9.3 [foz_us] 7.4-10.4 Automated blood neutrophils/100 leukocytes 75 % 42-75 Automated blood lymphocytes/100 leukocytes 10 % 12-44 Blood monocytes/100 leukocytes 13 % 0-12 Automated blood eosinophils/100 leukocytes 2 % 0-10 Automated blood basophils/100 leukocytes 1 % 0-10 Blood neutrophils automated count (number/volume) 5.7 10*3 1.8-7.8 Blood lymphocytes automated count (number/volume) 0.8 10*3 1.0-4.0 Blood monocytes automated count (number/volume) 1. 0 10*3 0.0-1.0 Automated eosinophil count 0.2 10*3/uL 0 .0-0.3 Automated blood basophil count (count/volume) 0.0 10*3/uL 0.0-0.1 Comprehensive metabolic panel - 01/15/20 15:25 Serum or plasma sodium measurement (moles/volume) 139 mmol/L 135-145 Serum or plasma potassium measurement (moles/volume) 3.9 mmol/L 3.6-5.0 Serum or plasma chloride measurement (moles/volume) 106 mmol/L 98-107 Carbon dioxide 25 mmol/L 21-32 Serum or plasma anion gap determination (moles/volume) 8 mmol/L 5-14 Serum or plasma urea nitrogen measurement (mass/volume ) 14 mg/dL 7-18 Serum or plasma creatinine measurement (mass/volume) 0.69 mg/dL 0.60-1.30 Serum or plasma urea nitrogen/creatinine mass ratio 20 NRG Serum or plasma creatinine measurement w ith calculation of estimated glomerular filtration rate > NRG Serum or plasma glucose measurement (mass/volume) 91 mg/dL 70-105 Serum or plasma calcium measurement (mass/volume) 9.4 mg/dL 8.5-10.1 Serum or plasma total bilirubin measurement (mass/volu me) 0.2 mg/dL 0.1-1.0 Serum or plasma alkaline phosphatase quang surement (enzymatic activity/volume) 80 U/L 40-136 Serum or plasma aspartate aminotransfera se measurement (enzymatic activity/volume) 13 U/L 5-34 Serum or plasma alanine aminotransferase measurement (enzymatic activity/volume) 21 U/L 0-55 Serum or plasma protein measurement (mass/volume) 7.7 g/dL 6.4-8.2 Serum or plasma albumin measurement (mass/volume) 4.3 g/dL 3.2-4.5 CALCIUM CORRECTED 9.2 mg/dL 8.5-10.1 Lipase - 01/15/20 15:25 Lipase 17 U/L 8-78 Encounters ACCT No. Visit Date/Time Discharge Status Pt. Type Provider Facility Loc./Unit Complaint [id number] 01/14/2020 14:58:00 020 16:41:00 DIS Emergency NANCY YANG MD [facility] ER SOA [id number] 08/18/2019 16:08:00 020 17:23:00 DIS Emergency HELADIO YOUNG APRN [facility] ER SOB,CHEST CONGESTED,COU GHING,DIZZY [id number] 05/04/2019 12:22:00 019 13:40:00 DIS Emergency HELADIO YOUNG APRN [facility] ER NECK PAIN/MIGRAINE [id number] 01/15/2020 15:37:00 Document Registration
[2020-01-15 16:27] LABS: ABG BASE EXCESS 0.4 MMOL/L (-2.5-2.5); ABG OXYGEN SATURATION 97 % (94-100); ABG PCO2 39 MMHG (35-45); ABG PH 7.41 (7.37-7.43); ABG PO2 93 MMHG (79-93); ABG TCO2 25.6 MMOL/L (21.0-31.0)
--- NOTE | 2020-01-15 16:29 | Diagnostic Imaging Report ---
INDICATION: soa COMPARISON: 01/14/2020. FINDINGS: Single frontal view of the chest demonstrates normal heart size and pulmonary vascularity. The lungs are well aerated and clear. No large pleural effusion or pneumothorax is seen. The visualized osseous structures show no acute abnormalities. IMPRESSION: 1. No acute cardiopulmonary process. Dictated by: Dictated on workstation # [id number]
[2020-01-15 16:30] LABS: ALLENS TEST POSITIVE; VENTILATOR NO
[2020-01-15 16:31] LABS: PATIENT TEMP 37.3
[2020-01-15] MEDS ORDERED: ONDA4TAB11 PO (17:14)
[2020-01-15] MEDS ORDERED: PROM25TA14 PO (17:31)
[2020-01-15 17:34] VITALS: BP 121/78
== END 2020-01-15 17:27 | disposition home or self-care (01) ==
LOC: EDUNIT# 14:40 → ER 14:42
DX: U07.1 COVID-19 (principal); R11.2 Nausea with vomiting, unspecified; A08.39 Other viral enteritis; Z88.1 Allergy status to other antibiotic agents
CPT/HCPCS: 36415; 71045; 80053; 81000; 82805; 83690; 84703; 85025

== ENCOUNTER 2020-09-22 18:55 | Emergency (ER) | payer BC, MEDICAID ==
[~2020-09-22] VITALS: Ht 167.7 cm; Wt 113.4 kg
[~2020-09-22 18:55] MED LIST changes: +ONDA4TAB11 PO; +PROM25TA14 PO
--- NOTE | 2020-09-22 19:06 | ED General ---
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 The pain and mild spotting started 3 days ago. She states that she sees Dr. Roman from obstetrics. She had a an ultrasound in the clinic 2 weeks ago and was told everything looked normal. She is . No difficulties with the first . She reports her blood type to be A+. She denies the passage of any clots or tissue but did notice passage of some bright red blood. Timing/Duration: 12-24 Hours Severity: Moderate Associated Systoms: Denies Symptoms Allergies and Home Medications Allergies Coded Allergies: cephalexin (Verified Allergy, Severe, RASH, 08/18/19) Home Medications Ondansetron 4 Mg Tab.rapdis, 4 MG PO Q6H PRN for NAUSEA/VOMITING Prescribed by: MARCELO BARRETT on 01/15/20 1714 Promethazine HCl 25 Mg Tablet, 25 MG PO Q6H PRN for NAUSEA/VOMITING Prescribed by: MARCELO BARRETT on 01/15/20 1731 Patient Home Medication List Home Medication List Reviewed: Yes Review of Systems Review of Systems Constitutional: see HPI EENTM: see HPI Respiratory: no symptoms reported Cardiovascular: no symptoms reported Genitourinary: no symptoms reported Musculoskeletal: no symptoms reported Skin: no symptoms reported Psychiatric/Neurological: No Symptoms Reported Hematologic/Lymphatic: No Symptoms Reported Past Dvqstap-Cxbgqy-Nhezmu Hx Patient Social History 2nd Hand Smoke Exposure: No Recent Hopitalizations: No Seasonal Allergies Seasonal Allergies: Yes Past Medical History Surgeries: No Asthma Cardiac: No Neurological: Yes Headaches /Migraines Female Reproductive Disorders: Ovarian Cyst Genitourinary: No Gastrointestinal: No Musculoskeletal: No Endocrine: No HEENT: No Cancer: No Psychosocial: No Integumentary: No Blood Disorders: No Adverse Reaction/Blood Tranf: No Physical Exam Vital Signs Vital Signs - First Documented 09/22/20 18:55 Temp 36.3 Pulse 96 Resp 16 B/P (MAP) 148/96 (113) Pulse Ox 97 O2 Delivery Room Air Capillary Refill : Height, Weight, BMI Height: '" Weight: lbs. oz. kg; 40.00 BMI Method: General Appearance: No Apparent Distress, WD/WN, Obese, Other (Alert and oriented very pleasant no distress hemodynamically stable.) Eyes: Bilateral Eye Normal Inspection, Bilateral Eye PERRL Respiratory: No Accessory Muscle Use, No Respiratory Distress Cardiovascular: Regular Rate, Rhythm, Normal Peripheral Pulses Gastrointestinal: Normal Bowel Sounds, Non Tender, Soft Genital/Rectal: Other Extremity: Normal Capillary Refill, Normal Inspection Neurologic/Psychiatric: Alert, Oriented x3 Skin: Normal Color, Warm/Dry Comments Bedside vaginal exam with Iza POWELL at the bedside reveals no blood in the vaginal vault. There is some mild clear whitish discharge from the closed cervical os. Progress/Results/Core Measures Suspected Sepsis SIRS Temperature: Pulse: Respiratory Rate: Laboratory Tests 09/22/20 19:17: White Blood Count 9.1 Blood Pressure / Mean: Laboratory Tests 09/22/20 19:17: Creatinine 0.57L, Platelet Count 346 Results/Orders Lab Results Laboratory Tests Test 09/22/20 19:17 Range/Units White Blood Count 9.1 4.3-11.0 10^3/uL Red Blood Count 4.33 3.80-5.11 10^6/uL Hemoglobin 13.2 11.5-16.0 g/dL Hematocrit 39 35-52 % Mean Corpuscular Volume 89 80-99 fL Mean Corpuscular Hemoglobin 31 25-34 pg Mean Corpuscular Hemoglobin Concent 34 32-36 g/dL Red Cell Distribution Width 13.2 10.0-14.5 % Platelet Count 346 130-400 10^3/uL Mean Platelet Volume 9.2 9.0-12.2 fL Immature Granulocyte % (Auto) 0 % Neutrophils (%) (Auto) 64 42-75 % Lymphocytes (%) (Auto) 26 12-44 % Monocytes (%) (Auto) 9 0-12 % Eosinophils (%) (Auto) 1 0-10 % Basophils (%) (Auto) 0 0-10 % Neutrophils # (Auto) 5.8 1.8-7.8 10^3/uL Lymphocytes # (Auto) 2.3 1.0-4.0 10^3/uL Monocytes # (Auto) 0.8 0.0-1.0 10^3/uL Eosinophils # (Auto) 0.1 0.0-0.3 10^3/uL Basophils # (Auto) 0.0 0.0-0.1 10^3/uL Immature Granulocyte # (Auto) 0.0 0.0-0.1 10^3/uL Urine Color YELLOW Urine Clarity CLEAR Urine pH 6.0 5-9 Urine Specific [place] 1.025 H 1.016-1.022 Urine Protein NEGATIVE NEGATIVE Urine Glucose (UA) NEGATIVE NEGATIVE Urine Ketones NEGATIVE NEGATIVE Urine Nitrite NEGATIVE NEGATIVE Urine Bilirubin NEGATIVE NEGATIVE Urine Urobilinogen 0.2 < = 1.0 MG/DL Urine Leukocyte Esterase NEGATIVE NEGATIVE Urine RBC (Auto) NEGATIVE NEGATIVE Urine RBC NONE /HPF Urine WBC 0-2 /HPF Urine Squamous Epithelial Cells 2-5 /HPF Urine Crystals NONE /LPF Urine Bacteria MODERATE H /HPF Urine Casts NONE /LPF Urine Mucus SMALL H /LPF Urine Culture Indicated NO Sodium Level 137 135-145 MMOL/L Potassium Level 4.1 3.6-5.0 MMOL/L Chloride Level 105 98-107 MMOL/L Carbon Dioxide Level 19 L 21-32 MMOL/L Anion Gap 13 5-14 MMOL/L Blood Urea Nitrogen 7 7-18 MG/DL Creatinine 0.57 L 0.60-1.30 MG/DL Estimat Glomerular Filtration Rate > 60 BUN/Creatinine Ratio 12 Glucose Level 99 70-105 MG/DL Calcium Level 9.4 8.5-10.1 MG/DL Human Chorionic Gonadotropin, Quant 97368 H <5 MIU/ML My Orders Orders - 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 Cbc With Automated Diff (09/22/20 18:58) Basic Metabolic Panel (09/22/20 18:58) Hcg,Quantitative (09/22/20 18:58) Ua Culture If Indicated (09/22/20 18:58) Abo Rh Type (09/22/20 18:58) Wet Prep (09/22/20 20:40) Neisseria Gonorrhea Swab (09/22/20 20:40) Genital Culture (09/22/20 20:40) Chlamydia Trachomatis Swab (09/22/20 20:40) Rx-Hydrocodone/Apap 5-325 Mg (Rx-Vicodin (09/22/20 20:45) Vital Signs/I&O 09/22/20 18:55 Temp 36.3 Pulse 96 Resp 16 B/P (MAP) 148/96 (113) Pulse Ox 97 O2 Delivery Room Air Capillary Refill : Departure Communication (Admissions) Bedside ultrasound reveals motion with cardiac activity with a heart rate measured at 156. is worried because they are having her lift greater than 150 pounds while at work. We will give her a note with a weight limit of 10 pounds. Impression Primary Impression: Vaginal bleeding affecting early Disposition: HOME, SELF-CARE Condition: Stable Departure-Patient Inst. Decision time for Depature: 20:41 Referrals: NO,LOCAL PHYSICIAN (PCP/Family) Primary Care Physician Patient Instructions: Bleeding In Early Add. Discharge Instructions: 1. Call Dr. Roman in the morning to notify her of your symptoms. Return to ER for any worsening. Medication as directed. Call the scheduling department tomorrow morning to figure out what time they want you here for the ultrasound. 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 Copy Copies To 1: ALCON ROMAN PETER J APRN Sep 22, 2020 19:06
[2020-09-22 19:25] LABS: BASOPHILS % (AUTO) 0 % (0-10); EOSINOPHILS # (AUTO) 0.1 10^3/uL (0.0-0.3); EOSINOPHILS % (AUTO) 1 % (0-10); HEMATOCRIT 39 % (35-52); HEMOGLOBIN 13.2 g/dL (11.5-16.0); LYMPHOCYTES # (AUTO) 2.3 10^3/uL (1.0-4.0); LYMPHOCYTES % (AUTO) 26 % (12-44); MEAN CORPUSCULAR HEMOGLOBIN 31 pg (25-34); MEAN CORPUSCULAR HGB CONC 34 g/dL (32-36); MEAN CORPUSCULAR VOLUME 89 fL (80-99); MEAN PLATELET VOLUME 9.2 fL (9.0-12.2); MONOCYTES # (AUTO) 0.8 10^3/uL (0.0-1.0); MONOCYTES % (AUTO) 9 % (0-12); NEUTROPHILS # (AUTO) 5.8 10^3/uL (1.8-7.8); NEUTROPHILS % (AUTO) 64 % (42-75); PLATELET COUNT 346 10^3/uL (130-400); WHITE BLOOD COUNT 9.1 10^3/uL (4.3-11.0)
[2020-09-22 19:33] LABS: BILIRUBIN,URINE NEGATIVE (NEGATIVE); CLARITY,URINE CLEAR; COLOR,URINE YELLOW; GLUCOSE, URINE (UA) NEGATIVE (NEGATIVE); KETONES,URINE NEGATIVE (NEGATIVE); LEUKOCYTE ESTERASE ,URINE NEGATIVE (NEGATIVE); NITRITE,URINE NEGATIVE (NEGATIVE); PROTEIN,URINE NEGATIVE (NEGATIVE)
[2020-09-22 19:44] LABS: CHLORIDE 105 MMOL/L (98-107); WBC,URINE 0-2 /HPF
[2020-09-22 19:45] LABS: BACTERIA,URINE MODERATE /HPF; POTASSIUM 4.1 MMOL/L (3.6-5.0); SODIUM 137 MMOL/L (135-145)
[2020-09-22 19:46] LABS: CALCIUM 9.4 MG/DL (8.5-10.1); GLUCOSE 99 MG/DL (70-105)
[2020-09-22 19:48] LABS: CARBON DIOXIDE 19 MMOL/L (21-32)
[2020-09-22 19:50] LABS: CREATININE SERUM 0.57 MG/DL (0.60-1.30); GFR ESTIMATED > 60
[2020-09-22 19:51] LABS: BUN/CREATININE RATIO 12
[2020-09-22] MEDS ORDERED: RX-HYDROCODONE/APAP 5/325 MG #4 TAB PK PO PRN (20:45)
[2020-09-22 20:51] VITALS: BP 136/87
== END 2020-09-22 20:52 | disposition home or self-care (01) ==
LOC: EDUNIT# 18:55 → ER 18:56
DX: O20.8 Other hemorrhage in early pregnancy (principal); E66.9 Obesity, unspecified; J45.909 Unspecified asthma, uncomplicated; Z88.1 Allergy status to other antibiotic agents; Z3A.00 Weeks of gestation of pregnancy not specified
CPT/HCPCS: 36415; 80048; 81000; 84702; 85025; 86900; 86901; 87070; 87205; 87210; 87491; 87591

== ENCOUNTER → 2020-09-23 | Outpatient (CLI) | payer MEDICAID ==
--- NOTE | 2020-09-23 16:31 | Diagnostic Imaging Report ---
PROCEDURE: US OB SINGLE FETUS <14 WKS. TECHNIQUE: Multiple Real-time grayscale images were obtained over the gravid uterus in various projections. INDICATION: , vaginal bleeding. FINDINGS: Eccentrically to the left lateral to the gestational sac, there is a 1.3 cm hypoechoic subchorionic collection, likely a tiny implantation hematoma or subchorionic separation. The placenta is forming anteriorly. The amniotic fluid volume appears normal. No adnexal lesion is identified. The crown-rump length correlates with an age of 13 weeks 1 day for a sonographic date of confinement of 03/30/2021. The heart rate is 160 BPM. IMPRESSION: There is a 13 week 1 day alvarez viable IUP with a probable small left-sided alvino-sac subchorionic hemorrhage. No extrauterine abnormality or other significant finding. Dictated by: Dictated on workstation # [id number]
== END ==
LOC: RAD 15:24
PROVIDERS: ATTEND Nurse Practitioner Family
DX: O20.9 Hemorrhage in early pregnancy, unspecified (principal); Z3A.13 13 weeks gestation of pregnancy
CPT/HCPCS: 76801

== ENCOUNTER → 2020-11-15 | Outpatient (CLI) | payer MEDICAID ==
--- NOTE | 2020-11-15 12:06 | Diagnostic Imaging Report ---
INDICATION: patient, survey. TECHNIQUE: Multiple real-time grayscale images were obtained over the gravid uterus. COMPARISON: Comparison made with prior study from 09/23/2020. FINDINGS: Single live intrauterine fetus is seen measuring 21 weeks 4 days in size with normal interval growth compared to the prior study. The fetus is in cephalic presentation. Amniotic fluid is qualitatively normal. Placenta is anterior with no evidence of previa. The distance from the placental tip to the internal cervical os was 3.9 cm. Cervical length was 4.8 cm. heart rate is 156 BPM. survey showed normal-appearing kidneys and bladder and stomach. Normal-appearing intracranial ventricles and spine were seen. Normal-appearing four-chamber heart view was noted. Normal-appearing three-vessel cord and cord insertion was noted. Maternal adnexa showed no free fluid. Biometrical measurements are as follows: Biparietal 5.28 cm, age 22 weeks 1 days. Head circumference 18.88 cm, age 21 weeks 2 days. Abdominal circumference 16.74 cm, age 21 weeks 6 days. Femur length 3.46 cm, age 21 weeks 0 days. Sonographic estimate age: 21 weeks 4 days. Sonographic estimated date of delivery: 03/24/2021. Estimated Weight: 419 gm (+/- 61 gm). LMP percentile: 97%. heart rate: 156 beats per minute. number: 1 of 1. IMPRESSION: Single live intrauterine fetus measuring 21 weeks 4 days in size. There was no detectable abnormality and there has been normal interval growth compared to the prior study. Dictated by: Dictated on workstation # [id number]
== END ==
LOC: RAD 09:49
PROVIDERS: ATTEND Obstetrics & Gynecology
DX: Z36.9 Encounter for antenatal screening, unspecified (principal); Z3A.21 21 weeks gestation of pregnancy
CPT/HCPCS: 76805

== ENCOUNTER 2021-02-03 13:25 | Outpatient (CLI) | payer OTHER, MEDICAID ==
[~2021-02-03] VITALS: Ht 167.7 cm; Wt 125.1 kg
[2021-02-03 13:53] VITALS: BP 119/65
[2021-02-03 14:15] LABS: BILIRUBIN,URINE NEGATIVE (NEGATIVE); CLARITY,URINE CLEAR; COLOR,URINE YELLOW; GLUCOSE, URINE (UA) NEGATIVE (NEGATIVE); KETONES,URINE 2+ (NEGATIVE); LEUKOCYTE ESTERASE ,URINE NEGATIVE (NEGATIVE); NITRITE,URINE NEGATIVE (NEGATIVE); PH,URINE 5.5 (5-9); PROTEIN,URINE NEGATIVE (NEGATIVE)
[2021-02-03 14:23] VITALS: BP 119/65
[2021-02-03 14:24] LABS: BACTERIA,URINE MODERATE /HPF; RBC,URINE RARE /HPF; WBC,URINE RARE /HPF
[2021-02-03] MEDS ORDERED: CALC-1037 PO (15:30)
[2021-02-03] MEDS ORDERED: AMLO2.5T4 PO (15:30)
[2021-02-03] MEDS ORDERED: PREN-37 PO (15:31)
[2021-02-03] MEDS ORDERED: ASPI-999 PO (15:32)
[2021-02-03 15:45] VITALS: BP 120/56
--- NOTE | 2021-02-04 08:09 | Physician Query-Final Dx ---
TIFFANIE LAGUERRE 02/04/21 0809: Clinic Account Progress/Dx Physician Query: Please give diagnosis Please include # weeks gestation Date of Service Feb 03, 2021 at 13:25 GERARDO REED DO 02/07/21 1543: Clinic Account Progress/Dx DIAGNOSIS: Diagnosis 28 week IUP Irregular contractions Dehydration TIFFANIE LAGUERRE Feb 04, 2021 08:09 GERARDO REED DO Feb 07, 2021 15:43
== END 2021-02-03 15:48 | disposition home or self-care (01) ==
LOC: WSo 13:25 → LDRP 13:26 → WSo 15:48
PROVIDERS: ATTEND Obstetrics & Gynecology
DX: O62.8 Other abnormalities of forces of labor (principal); O99.283 Endocrine, nutritional and metabolic diseases complicating pregnancy, third trimester; Z3A.28 28 weeks gestation of pregnancy
CPT/HCPCS: 81000; 99213

== ENCOUNTER 2021-03-09 13:37 | Outpatient (CLI) | payer OTHER, MEDICAID ==
[~2021-03-09] VITALS: Ht 167.7 cm; Wt 126.1 kg
[2021-03-09] VITALS (9 sets, daily range): BP systolic 117–137; BP diastolic 59–80
[~2021-03-09 13:37] MED LIST changes: +AMLO2.5T4 PO; +ASPI-999 PO; +CALC-1037 PO; +PREN-37 PO
[2021-03-09] MEDS ORDERED: D5 LR IV SOLUTION 1,000 ML IV ONE ×2 (14:45→14:48)
[2021-03-09] MEDS ORDERED: ONDANSETRON 4 MG/2 ML (SDV) Z0FRAN IVP ONE (14:45)
[2021-03-09] MEDS ORDERED: ONDANSETRON 4 MG/2 ML (SDV) Z0FRAN ONE (14:48)
[2021-03-09 14:59] LABS: BASOPHILS % (AUTO) 0 % (0-10); EOSINOPHILS # (AUTO) 0.1 10^3/uL (0.0-0.3); EOSINOPHILS % (AUTO) 1 % (0-10); HEMATOCRIT 37 % (35-52); HEMOGLOBIN 12.9 g/dL (11.5-16.0); LYMPHOCYTES % (AUTO) 13 % (12-44); MEAN CORPUSCULAR HEMOGLOBIN 32 pg (25-34); MEAN CORPUSCULAR HGB CONC 35 g/dL (32-36); MEAN CORPUSCULAR VOLUME 93 fL (80-99); MEAN PLATELET VOLUME 9.2 fL (9.0-12.2); MONOCYTES # (AUTO) 1.1 X 10^3 (0.0-1.0); MONOCYTES % (AUTO) 7 % (0-12); NEUTROPHILS # (AUTO) 11.9 X 10^3 (1.8-7.8); NEUTROPHILS % (AUTO) 78 % (42-75); PLATELET COUNT 313 10^3/uL (130-400); WHITE BLOOD COUNT 15.2 10^3/uL (4.3-11.0)
[2021-03-09 15:08] LABS: ALBUMIN 3.5 GM/DL (3.2-4.5)
[2021-03-09 15:09] LABS: POTASSIUM 3.6 MMOL/L (3.6-5.0)
[2021-03-09 15:10] LABS: CALCIUM 9.5 MG/DL (8.5-10.1)
[2021-03-09 15:11] LABS: TOTAL PROTEIN 6.9 GM/DL (6.4-8.2)
[2021-03-09 15:13] LABS: BILIRUBIN,TOTAL 0.4 MG/DL (0.1-1.0)
[2021-03-09 15:15] LABS: CREATININE SERUM 0.52 MG/DL (0.60-1.30)
[2021-03-09 15:16] LABS: ATYPICAL LYMPHOCYTES 2 %; BAND NEUTROPHILS 2 %; LYMPHOCYTES % (MANUAL) 14 %; MONOCYTES % (MANUAL) 7 %; NEUTROPHILS % (MANUAL) 75 %; RBC MORPH NORMAL
[2021-03-09 16:03] LABS: BILIRUBIN,URINE 1+ (NEGATIVE); CLARITY,URINE CLEAR; COLOR,URINE YELLOW; GLUCOSE, URINE (UA) NEGATIVE (NEGATIVE); KETONES,URINE 1+ (NEGATIVE); LEUKOCYTE ESTERASE ,URINE NEGATIVE (NEGATIVE); NITRITE,URINE NEGATIVE (NEGATIVE); PROTEIN,URINE TRACE (NEGATIVE)
[2021-03-09 16:14] LABS: BACTERIA,URINE NEGATIVE /HPF; SQUAMOUS EPITHELIAL CELL,UR 0-2 /HPF; WBC,URINE 0-2 /HPF
--- NOTE | 2021-03-10 08:13 | Physician Query-Final Dx ---
TIFFANIE LAGUERRE 03/10/21 0812: Clinic Account Progress/Dx Physician Query: Please give diagnosis Please include # weeks gestation Date of Service Mar 09, 2021 at 13:37 OBEY SABILLON MD 03/11/21 1243: Clinic Account Progress/Dx DIAGNOSIS: Diagnosis False labor at 36 weeks gestation TIFFANIE LAGUERRE Mar 10, 2021 08:12 OBEY SABILLON MD Mar 11, 2021 12:43
== END 2021-03-09 16:50 | disposition home or self-care (01) ==
LOC: WSo 13:37 → LDRP 13:38 → WSo 16:50
PROVIDERS: ATTEND Obstetrics & Gynecology
DX: O62.9 Abnormality of forces of labor, unspecified (principal); Z3A.00 Weeks of gestation of pregnancy not specified
CPT/HCPCS: 80053; 81000; 85007; 85027; 87088; 96361; 96374; G0463; 36415; 99214

== ENCOUNTER 2021-03-30 06:55 | Inpatient (IN) | payer OTHER, MEDICAID ==
[2021-03-30] VITALS (76 sets, daily range): BP systolic 95–160; BP diastolic 52–104
[~2021-03-30] VITALS: Ht 164 cm; Wt 132.4 kg
[2021-03-30] MEDS ORDERED: MINERAL OIL CONCENTRATE 99.9% 15 ML UDC TOP PRN (08:00)
[2021-03-30] MEDS ORDERED: LIDOCAINE/EPI 2% 1:200,00 (XYLOCAINE) 20 ML VIAL INJ PRN (08:00)
[2021-03-30] MEDS ORDERED: D5 LR IV SOLUTION 1,000 ML IV ONE (08:05)
[2021-03-30] MEDS: D5 LR IV SOLUTION 1,000 ML IV SCH ×2 (08:14→22:13)
[2021-03-30 08:37] LABS: BASOPHILS % (AUTO) 0 % (0-10); EOSINOPHILS # (AUTO) 0.1 10^3/uL (0.0-0.3); EOSINOPHILS % (AUTO) 1 % (0-10); HEMATOCRIT 35 % (35-52); HEMOGLOBIN 11.9 g/dL (11.5-16.0); LYMPHOCYTES % (AUTO) 15 % (12-44); MEAN CORPUSCULAR HEMOGLOBIN 32 pg (25-34); MEAN CORPUSCULAR HGB CONC 34 g/dL (32-36); MEAN CORPUSCULAR VOLUME 93 fL (80-99); MONOCYTES % (AUTO) 7 % (0-12); NEUTROPHILS # (AUTO) 9.9 10^3/uL (1.8-7.8); NEUTROPHILS % (AUTO) 75 % (42-75); PLATELET COUNT 324 10^3/uL (130-400); WHITE BLOOD COUNT 13.3 10^3/uL (4.3-11.0)
--- NOTE | 2021-03-30 09:13 | History & Physical-OB ---
OB - Chief Complaint & HPI Date/Time Date of Admission: Date of Admission: Mar 30, 2021 at 06:55 Date seen by a Provider: Mar 30, 2021 Time Seen by a Provider: 08:45 Chief Complaint/History OB-Reason for Admission/Chief: Induction of Labor Hx : 2 Hx Para: 1 Expected Date of Delivery: Apr 03, 2021 Gestational Age in Weeks: 39 Gestational Age in Days: 3 Admission Nurse Assessment Rev: Yes History of Labs A+/- HBsAg - HIV - Hep c - Rub I VDRL NR GBS - Other Patient presents for social induction of labor Allergies and Home Medications Allergies Coded Allergies: cephalexin (Verified Allergy, Severe, RASH, 08/18/19) Patient Home Medication List Home Medication List Reviewed: Yes Amlodipine Besylate (Amlodipine Besylate) 2.5 Mg Tablet, 2.5 MG PO DAILY, (Reported) Entered as Reported by: ROLANDO ROSS on 02/03/211529 Last Action: Last Taken Edited Calcium Carbonate/Vitamin D3 (Calcium 600 + Vit D Tablet) 1 Each Tablet, 1 EACH PO DAILY, (Reported) Entered as Reported by: ROLANDO ROSS on 02/03/211529 Last Action: Last Taken Edited Vit/Iron Fumarate/FA ( Tablet) 1 Each Tablet, 1 EACH PO DAILY, (Reported) Entered as Reported by: ROLANDO ROSS on 02/03/211530 Last Action: Last Taken Edited OB - History Hx of Present Ultrasounds: Normal mid trimester US Obstetrical Complications: None Medical Complications: None Information Induced Hypertension: Yes Maternal Gestational Diabetes: No Hemorrhage: No Obstetrical History Hx : 2 Hx Para: 1 Hx # Term Pregnancies: 1 Hx # Pregnancies: 0 Number of Living Children: 1 Hx Multiple Gestation: No Hx Ectopic : No Hx Stillbirth: No Hx Complication: No Hx Induced Hypertens: Yes Hx Maternal Gestational Diabet: No Hx Hemorrhage: No Delivery History Hx Dystocia: No Hx Forceps Assisted Delivery: No Hx Vacuum Extraction Assisted: No Hx Placenta Abnormality: No Hx Distress: No Hx Large For Gestational Age I: Yes Hx Small for Gestational Age I: No Hx Section: No Hx Vaginal Delivery Post C-Sec: No Hx Blood Disorders: No Adverse Rxn to Tranfusion: No Patient Past Medical History induced hypertension asthma cancer age 3 and 13 Social History/Family History Alcohol Use: Denies Use Recreational Drug Use: No Smoking Cessation: Unknown if ever smoked 2nd Hand Smoke Exposure: No Immunizations Hepatitis A: No Hepatitis B: Yes Tetanus Booster (TDap): Less than 5yrs () Date of Influenza Vaccine: Feb 16, 2021 Rubella: immune RPR/VDRL: Negative GBS Status: Negative HBsAG: Negative OB - Admission Exam Physical Exam Vitals: 131/74 36.9 88 Heart: Rhythm Normal Lungs: Clear Abdomen: Gravid Extremities: Edema Cervical Dilatation: 2cm Effacement: 50% Station: -3 Membranes: Intact Heart Rate: 140's Accelerations: Accelerations Present Decelerations: No Decelerations Short 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: 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) Contractions on Admission: 6-10 Minutes Apart Labs Laboratory Tests Test 03/30/21 07:45 Range/Units White Blood Count 13.3 H 4.3-11.0 10^3/uL Red Blood Count 3.77 L 3.80-5.11 10^6/uL Hemoglobin 11.9 11.5-16.0 g/dL Hematocrit 35 35-52 % Mean Corpuscular Volume 93 80-99 fL Mean Corpuscular Hemoglobin 32 25-34 pg Mean Corpuscular Hemoglobin Concent 34 32-36 g/dL Red Cell Distribution Width 13.3 10.0-14.5 % Platelet Count 324 130-400 10^3/uL Mean Platelet Volume 10.0 9.0-12.2 fL Immature Granulocyte % (Auto) 2 % Neutrophils (%) (Auto) 75 42-75 % Lymphocytes (%) (Auto) 15 12-44 % Monocytes (%) (Auto) 7 0-12 % Eosinophils (%) (Auto) 1 0-10 % Basophils (%) (Auto) 0 0-10 % Neutrophils # (Auto) 9.9 H 1.8-7.8 10^3/uL Lymphocytes # (Auto) 2.0 1.0-4.0 10^3/uL Monocytes # (Auto) 1.0 0.0-1.0 10^3/uL Eosinophils # (Auto) 0.1 0.0-0.3 10^3/uL Basophils # (Auto) 0.0 0.0-0.1 10^3/uL Immature Granulocyte # (Auto) 0.2 H 0.0-0.1 10^3/uL OB - Assessment/Plan/Diagnosis Assessment Assessment: induction of labor Admission Dx 39 2/7 weeks for induction of labor social induction and induced hypertension Admission Status: Inpatient Order (span 2 midnights) Reason for Inpatient Admission: labor Plan Plan: Induction Induction Method: per Pitocin Protocol ALCON ROMAN DO Mar 30, 2021 09:13
[2021-03-30] MEDS ORDERED: OXYTOCIN PRE-MIX DRIP 500 ML IV SCH (09:15)
[2021-03-30] MEDS ORDERED: BUTORPHANOL INJ 2 MG/ML (STADOL) VIAL ONE (14:11)
[2021-03-30] MEDS ORDERED: BUTORPHANOL INJ 2 MG/ML (STADOL) VIAL IV PRN (14:15)
[2021-03-30] MEDS ORDERED: fentaNYL 2 mcg/ml BUPIVA 0.125 100 ML ONE (17:08)
[2021-03-30] MEDS ORDERED: diphenhydrAMINE 50 MG/ML INJ (BENADRYL) IV PRN (18:15)
[2021-03-30] MEDS ORDERED: EPIDURAL (fentaNYL 2 MCG/ML BUPIVA 0.125%)100 ML BAG EPI SCH (18:15)
[2021-03-30] MEDS ORDERED: NALOXONE 0.4 MG/ML 1 ML (NARCAN) VIAL IV PRN ×2 (18:15)
[2021-03-30] MEDS ORDERED: LACTATED RINGERS 1,000 ML IV SCH (18:15)
[2021-03-30] MEDS ORDERED: ONDANSETRON 4 MG/2 ML (SDV) Z0FRAN IV PRN (18:15)
[2021-03-30] MEDS ORDERED: METOCLOPRAMIDE INJ 10 MG/2 ML (REGLAN) IV PRN (18:15)
[2021-03-30] MEDS ORDERED: diphenhydrAMINE 50 MG/ML INJ (BENADRYL) ONE (22:05)
[2021-03-30] MEDS ORDERED: diphenhydrAMINE 50 MG/ML INJ (BENADRYL) IVP ONE (22:15)
[2021-03-30] MEDS ORDERED: CITRIC ACID/SOB CIT (BICITRA) 30 ML UDC ONE (23:35)
[2021-03-30] MEDS ORDERED: METOCLOPRAMIDE INJ 10 MG/2 ML (REGLAN) ONE (23:36)
[2021-03-30] MEDS ORDERED: FAMOTIDINE 20MG/2ML IV (PEPCID) ONE (23:36)
[2021-03-30] MEDS ORDERED: TERBUTALINE INJ 1 MG/ML (BRETHINE) AMP ONE (23:58)
[2021-03-31] VITALS (15 sets, daily range): BP systolic 106–135; BP diastolic 51–76
[2021-03-31] MEDS ORDERED: WATER (STERILE) FOR INJECTION 10 ML ONE (00:01)
[2021-03-31] MEDS ORDERED: BUPIVACAINE 0.5% 30 ML (SENSORCAINE) VIAL ONE (00:25)
[2021-03-31] MEDS ORDERED: ONDANSETRON 4 MG/2 ML (SDV) Z0FRAN ONE (00:25)
[2021-03-31] MEDS ORDERED: LIDOCAINE PF 2% 5 ML (XYLOCAINE) VIAL ONE (00:25)
[2021-03-31] MEDS: AZITHROMYCIN INJECTION 500 MG/5 ML VIAL ONE ×2 (00:40→00:56)
[2021-03-31] MEDS ORDERED: PHENYLEPHRINE 100 MCG/ML 10 ML (ANESTHESIA) SYR ONE (00:47)
[2021-03-31] MEDS ORDERED: OXYTOCIN PRE-MIX DRIP 1,000 ML IV ONE (01:02)
[2021-03-31] MEDS ORDERED: fentaNYL INJ 100 MCG/2 ML AMP ONE (01:08)
--- NOTE | 2021-03-31 01:40 | Cesarean Section Operative ---
Procedure Procedure Note Pre-operative Diagnosis: Ruth Teixeira is a 25 /Para 2 / 1, Gestational Age 39 3/7 weeks in labor Post-operative Diagnosis: same Procedure: primary low transverse section Physician: ALCON ROMAN Estimated blood loss: 600 mL Disposition: stable Findings: Viable male , Apgars 7/9, weight 10#14 ounces, intact placenta, 3vc, normal appearing uterus, tubes, and ovaries. Indications:Ruth Teixeira is a 25 /Para 2 / 1,Gestational Age 39 3/7 weeks, breech for primary section Procedure Details: The patient was seen in pre-op and the procedure was discussed with the patient in full, including the risks, benefits, and alternatives. All questions were answered. The patient was taken to the operating room and a time out was performed, verifying patient and procedure. After epidural anesthesia was redosed by our anesthesia colleagues, the patient was placed in the dorsal supine with leftward tilt for uterine displacement.~ Her abdomen was then prepped and draped in the typical sterile fashion. A Pfannenstiel skin incision was made using a scalpel and carried down through the underlying fascia. The fascia was incised in the midline and tented up using Tanvir clamps. On both the inferior and superior fascia side the rectus muscle was dissected off bluntly and sharply using De León scissors. The peritoneum was i dentified and entered bluntly in the midline. This was then stretched laterally using manual strength. After entering the abdominal cavity and confirming lack of intraperitoneal adhesions, an extra large Ham retractor was placed and the lower uterine segment was visualized. A scalpel was utilized to make a low transverse uterine incision. The infant's left hip was presenting. The left foot was grasped and brought to the level of the incision. the right foot was then delivered and the fetus was delivered up to the left of the scapulae bilaterally. The infant was now rotated and the arms were brought across the chest to deliver. The head was now delivered in a flexed fashion with the Mariceau-Smellie- Veit maneuver. Mouth and nares were suctioned with bulb suction. After the umbilical cord was clamped and cut, the was handed off to the pediatric staff. A sample of cord blood was then obtained. The placenta was delivered intact via uterine massage. The uterus was cleared of all clots and debris. The uterine incision was closed using 0 Vicryl in a running locked fashion. A second imbricated layer was placed using 0 Vicryl in a running fashion as well. The abdominal gutters were cleared of all clots and debris. A final check of the uterine incision showed it to be hemostatic. The peritoneum was closed using 3-0 Vicryl in a running fashion. The fascia was closed with 0 PDS in a running fashion. The subcutaneous space was hemostatic, and irrigated. The subcutaneous space was closed with0 Plain in several single interrupted stitches. The skin was then closed using 4-0 Biosyn in a running subcuticular fashion. The skin edges were reapproximated together and were hemostatic. Surgifix was placed. A pressure dressing was applied. All sponge, lap and needle counts were correct at the end of the procedure per nursing. Vitals - Labs Vital Signs - I&O Vital Signs Date Time Temp Pulse Resp B/P (MAP) Pulse Ox O2 Delivery O2 Flow Rate FiO2 03/31/21 00:30 92 128/60 (82) 03/31/21 00:15 93 127/65 (85) 03/31/21 00:00 97 128/76 (93) 03/30/21 23:45 92 160/63 (95) 03/30/21 23:30 103 138/104 (115) 100 03/30/21 23:15 96 120/58 (78) 100 03/30/21 23:00 81 121/59 (79) 98 03/30/21 22:45 85 117/71 (86) 98 03/30/21 22:30 83 116/64 (81) 98 03/30/21 22:15 92 126/77 (93) 100 03/30/21 22:00 90 107/55 (72) 03/30/21 21:45 76 95/58 (70) 03/30/21 21:30 76 97/60 (72) 03/30/21 21:15 89 122/56 (78) 100 03/30/21 21:00 78 126/70 (88) 99 03/30/21 20:45 77 123/66 (85) 100 03/30/21 20:30 80 120/70 (87) 99 03/30/21 20:15 80 113/55 (74) 100 03/30/21 20:00 71 126/58 (80) 99 03/30/21 19:45 77 106/57 (73) 100 03/30/21 19:30 82 113/57 (75) 100 03/30/21 19:15 82 114/57 (76) 100 03/30/21 19:00 88 101/52 (68) 100 Room Air 03/30/21 19:00 88 14 101/52 (68) 100 03/30/21 18:52 91 105/55 (72) 100 Room Air 03/30/21 18:50 88 110/55 (73) 100 Room Air 03/30/21 18:45 76 111/56 (74) 98 Room Air 03/30/21 18:44 88 108/55 (72) 100 03/30/21 18:40 73 107/55 (72) 03/30/21 18:38 92 113/55 (74) 99 03/30/21 18:30 72 113/58 (76) 98 Room Air 03/30/21 18:25 79 119/57 (77) 97 03/30/21 18:23 72 110/55 (73) 97 Room Air 03/30/21 18:18 82 110/58 (75) Room Air 03/30/21 18:15 72 112/58 (76) 98 Room Air 03/30/21 18:12 76 112/59 (76) 97 Room Air 03/30/21 18:10 82 111/59 (76) 97 03/30/21 18:06 88 110/58 (75) 88 03/30/21 18:03 81 113/57 (75) 98 Room Air 03/30/21 18:00 36.8 86 20 119/58 (78) 98 Room Air 03/30/21 17:57 85 123/64 (83) 97 Room Air 03/30/21 17:54 84 127/65 (85) 97 Room Air 03/30/21 17:52 91 119/59 (79) 98 Room Air 03/30/21 17:51 91 127/64 (85) Room Air 03/30/21 17:49 84 128/64 (85) Room Air 03/30/21 17:45 86 127/64 (85) Room Air 03/30/21 17:38 80 129/74 (92) Room Air 03/30/21 17:30 80 20 129/74 (92) Room Air 03/30/21 17:15 83 117/57 (77) Room Air 03/30/21 17:00 76 109/64 (79) Room Air 03/30/21 16:45 76 109/64 (79) Room Air 03/30/21 16:30 76 127/63 (84) Room Air 03/30/21 16:15 75 117/57 (77) Room Air 03/30/21 16:00 76 119/58 (78) Room Air 03/30/21 15:45 80 123/70 (87) Room Air 03/30/21 15:30 75 18 123/63 (83) Room Air 03/30/21 15:15 76 117/64 (81) Room Air 03/30/21 15:00 35.3 79 118/59 (78) Room Air 03/30/21 14:45 80 113/58 (76) Room Air 03/30/21 14:30 78 112/62 (79) Room Air 03/30/21 14:15 86 16 120/55 (76) Room Air 03/30/21 14:00 82 122/59 (80) Room Air 03/30/21 13:45 82 122/59 (80) Room Air 03/30/21 13:30 76 132/65 (87) Room Air 03/30/21 13:15 78 130/69 (89) Room Air 03/30/21 13:00 85 114/55 (74) Room Air 03/30/21 12:45 36.3 78 122/60 (80) Room Air 03/30/21 12:30 78 122/58 (79) Room Air 03/30/21 12:15 67 121/57 (78) Room Air 03/30/21 12:00 72 127/63 (84) Room Air 03/30/21 11:45 75 120/65 (83) Room Air 03/30/21 11:30 75 120/65 (83) Room Air 03/30/21 11:15 36.0 71 120/59 (79) Room Air 03/30/21 11:00 72 105/53 (70) Room Air 03/30/21 10:45 78 16 107/55 (72) Room Air 03/30/21 10:45 Room Air 03/30/21 10:30 78 116/63 (80) Room Air 03/30/21 10:15 86 18 108/58 (75) Room Air 03/30/21 10:00 86 18 126/72 (90) Room Air 03/30/21 09:45 86 18 121/73 (89) Room Air 03/30/21 07:30 36.9 96 18 131/74 (93) 96 Room Air 03/30/21 07:30 36.9 96 16 96 Room Air I & O 03/31/21 07:00 Intake Total 2000 ml Balance 2000 ml Labs Laboratory Tests 03/30/21 07:45: White Blood Count 13.3H, Red Blood Count 3.77L, Hemoglobin 11.9, Hematocrit 35, Mean Corpuscular Volume 93, Mean Corpuscular Hemoglobin 32, Mean Corpuscular Hemoglobin Concent 34, Red Cell Distribution Width 13.3, Platelet Count 324, Mean Platelet Volume 10.0, Immature Granulocyte % (Auto) 2, Neutrophils (%) (Auto) 75, Lymphocytes (%) (Auto) 15, Monocytes (%) (Auto) 7, Eosinophils (%) (Auto) 1, Basophils (%) (Auto) 0, Neutrophils # (Auto) 9.9H, Lymphocytes # (Auto) 2.0, Monocytes # (Auto) 1.0, Eosinophils # (Auto) 0.1, Basophils # (Auto) 0.0, Immature Granulocyte # (Auto) 0.2H ALCON ROMAN DO Mar 31, 2021 01:40
[2021-03-31] MEDS ORDERED: morphine INJ 10 MG/ML 1ML (SYR OR VIAL) IVP ONE (02:00)
[2021-03-31] MEDS ORDERED: MEPERIDINE (DEMEROL) INJ 50 MG/ML IVP ONE (02:00)
[2021-03-31] MEDS ORDERED: ONDANSETRON 4 MG/2 ML (SDV) Z0FRAN IVP PRN ×2 (02:00→03:30)
[2021-03-31] MEDS: CATHETER FLUSH 10 ML SYR IV SCH ×4 (02:59→17:40)
[2021-03-31] MEDS ORDERED: morphine INJ 4 MG/ML 1 ML (VIAL/SYRINGE) IV PRN (03:30)
[2021-03-31] MEDS ORDERED: NALOXONE 0.4 MG/ML 1 ML (NARCAN) VIAL IV PRN (03:30)
[2021-03-31] MEDS ORDERED: OXYTOCIN PRE-MIX DRIP 500 ML IV SCH (03:30)
[2021-03-31] MEDS: D5 LR IV SOLUTION 1,000 ML IV SCH (04:12)
[2021-03-31] MEDS: KETOROLAC 30 MG/ML VIAL IV SCH ×3 (05:51→17:39)
[2021-03-31] MEDS: ACETAMINOPHEN 500 MG TAB (TYLENOL) PO SCH ×3 (05:52→20:38)
[2021-03-31] MEDS ORDERED: CATHETER FLUSH 10 ML SYR IV SCH (06:00)
[2021-03-31] MEDS ORDERED: CLINDAMYCIN 900 MG/50 ML IVPB 50 ML IV ONE ×2 (07:30)
[2021-03-31] MEDS ORDERED: TERBUTALINE INJ 1 MG/ML (BRETHINE) AMP IV ONE (07:30)
[2021-03-31] MEDS ORDERED: AZITHROMYCIN 500 MG/NS 250 ML IVPB IV ONE ×2 (07:30)
[2021-03-31] MEDS: amLODIPine 2.5MG (NORVASC) TAB PO SCH ×2 (08:55→12:08)
[2021-03-31] MEDS: DOCUSATE SODIUM 100 MG (COLACE) CAP PO SCH ×2 (08:55→20:38)
--- NOTE | 2021-03-31 10:20 | Postpartum Progress Note ---
Note Note Day # 0 Subjective: Patient is without complaints. Tolerating a regular diet without nausea or vomiting. Normal lochia. Pain is well controlled with oral pain medications. Patient has yet to ambulate and has not voided since catheter was removed. Objective: Physical Exam: General - Alert and oriented, no apparent distress Abdomen - Soft, appropriately tender to palpation, non-distended, fundus firm at umbilicus; dressing over abdominal incision intact, no drainage noted Extremities - no edema, negative Krystal's bilaterally Assessment: Post- day # 0, status post PLTCS. Recovering well, hemodynamically stable Acute blood loss anemia Plan: Routine care. Encourage breast feeding. Encourage ambulation. Ferrous sulfate supplementation. Plan for discharge 04/02/21 Vitals - Labs Vital Signs - I&O Vital Signs Date Time Temp Pulse Resp B/P (MAP) Pulse Ox O2 Delivery O2 Flow Rate FiO2 03/31/21 08:13 Room Air 03/31/21 03:30 36.8 96 16 107/57 (74) 03/31/21 02:30 96 16 113/60 (77) 100 Room Air 03/31/21 02:30 Room Air 03/31/21 02:20 36.1 16 122/66 (84) 95 Room Air 03/31/21 02:10 14 112/59 (76) 95 Room Air 03/31/21 02:05 Room Air 03/31/21 02:00 16 115/59 (77) 97 Room Air 03/31/21 01:50 16 126/68 (87) 94 Room Air 03/31/21 01:40 Room Air 03/31/21 01:40 36.8 16 135/58 (83) 96 Room Air 03/31/21 00:30 92 128/60 (82) 03/31/21 00:15 93 127/65 (85) 03/31/21 00:00 97 128/76 (93) 03/30/21 23:45 92 160/63 (95) 03/30/21 23:30 103 138/104 (115) 100 03/30/21 23:15 96 120/58 (78) 100 03/30/21 23:00 81 121/59 (79) 98 03/30/21 22:45 85 117/71 (86) 98 03/30/21 22:30 83 116/64 (81) 98 03/30/21 22:15 92 126/77 (93) 100 03/30/21 22:00 90 107/55 (72) 03/30/21 21:45 76 95/58 (70) 03/30/21 21:30 76 97/60 (72) 03/30/21 21:15 89 122/56 (78) 100 03/30/21 21:00 78 126/70 (88) 99 03/30/21 20:45 77 123/66 (85) 100 03/30/21 20:30 80 120/70 (87) 99 03/30/21 20:15 80 113/55 (74) 100 03/30/21 20:00 71 126/58 (80) 99 03/30/21 19:45 77 106/57 (73) 100 03/30/21 19:30 82 113/57 (75) 100 03/30/21 19:15 82 114/57 (76) 100 03/30/21 19:00 88 101/52 (68) 100 Room Air 03/30/21 19:00 88 14 101/52 (68) 100 03/30/21 18:52 91 105/55 (72) 100 Room Air 03/30/21 18:50 88 110/55 (73) 100 Room Air 03/30/21 18:45 76 111/56 (74) 98 Room Air 03/30/21 18:44 88 108/55 (72) 100 03/30/21 18:40 73 107/55 (72) 03/30/21 18:38 92 113/55 (74) 99 03/30/21 18:30 72 113/58 (76) 98 Room Air 03/30/21 18:25 79 119/57 (77) 97 03/30/21 18:23 72 110/55 (73) 97 Room Air 03/30/21 18:18 82 110/58 (75) Room Air 03/30/21 18:15 72 112/58 (76) 98 Room Air 03/30/21 18:12 76 112/59 (76) 97 Room Air 03/30/21 18:10 82 111/59 (76) 97 03/30/21 18:06 88 110/58 (75) 88 03/30/21 18:03 81 113/57 (75) 98 Room Air 03/30/21 18:00 36.8 86 20 119/58 (78) 98 Room Air 03/30/21 17:57 85 123/64 (83) 97 Room Air 03/30/21 17:54 84 127/65 (85) 97 Room Air 03/30/21 17:52 91 119/59 (79) 98 Room Air 03/30/21 17:51 91 127/64 (85) Room Air 03/30/21 17:49 84 128/64 (85) Room Air 03/30/21 17:45 86 127/64 (85) Room Air 03/30/21 17:38 80 129/74 (92) Room Air 03/30/21 17:30 80 20 129/74 (92) Room Air 03/30/21 17:15 83 117/57 (77) Room Air 03/30/21 17:00 76 109/64 (79) Room Air 03/30/21 16:45 76 109/64 (79) Room Air 03/30/21 16:30 76 127/63 (84) Room Air 03/30/21 16:15 75 117/57 (77) Room Air 03/30/21 16:00 76 119/58 (78) Room Air 03/30/21 15:45 80 123/70 (87) Room Air 03/30/21 15:30 75 18 123/63 (83) Room Air 03/30/21 15:15 76 117/64 (81) Room Air 03/30/21 15:00 35.3 79 118/59 (78) Room Air 03/30/21 14:45 80 113/58 (76) Room Air 03/30/21 14:30 78 112/62 (79) Room Air 03/30/21 14:15 86 16 120/55 (76) Room Air 03/30/21 14:00 82 122/59 (80) Room Air 03/30/21 13:45 82 122/59 (80) Room Air 03/30/21 13:30 76 132/65 (87) Room Air 03/30/21 13:15 78 130/69 (89) Room Air 03/30/21 13:00 85 114/55 (74) Room Air 03/30/21 12:45 36.3 78 122/60 (80) Room Air 10/27/21 12:30 78 122/58 (79) Room Air 03/30/21 12:15 67 121/57 (78) Room Air 03/30/21 12:00 72 127/63 (84) Room Air 03/30/21 11:45 75 120/65 (83) Room Air 03/30/21 11:30 75 120/65 (83) Room Air 03/30/21 11:15 36.0 71 120/59 (79) Room Air 03/30/21 11:00 72 105/53 (70) Room Air 03/30/21 10:45 78 16 107/55 (72) Room Air 03/30/21 10:45 Room Air 03/30/21 10:30 78 116/63 (80) Room Air I & O 03/31/21 07:00 Intake Total 2000 ml Output Total 150 ml Balance 1850 ml SHARLA SOLIZ APRN Mar 31, 2021 10:19
--- NOTE | 2021-03-31 13:46 | Anesthesia-General Post-Op ---
General Patient Condition Mental Status/LOC: Same as Preop Cardiovascular: Satisfactory Nausea/Vomiting: Absent Respiratory: Satisfactory Pain: Controlled Complications: Absent Post Op Complications Complications None Follow Up Care/Instructions Patient Instructions None needed. Anesthesia/Patient Condition Patient Condition Patient is doing well, no complaints, stable vital signs, no apparent adverse anesthesia problems. No complications reported per nursing. JULIO CORNELIUS CRNA Mar 31, 2021 13:46
--- NOTE | 2021-03-31 13:46 | Anesthesia-Regional Post-Op ---
Regional Patient Condition Mental Status: Alert, Oriented x3 Circulation: Same as Pre-Op Headache: Absent Sensation: Full Recovery Motor Block: Absent Post Op Complications Complications None Follow Up Care/Instructions Patient Instructions None needed. Anesthesia/Patient Condition Patient is doing well, no complaints, stable vital signs, no apparent adverse anesthesia problems. No complications reported per nursing. JULIO CORNELIUS CRNA Mar 31, 2021 13:46
[2021-03-31] MEDS ORDERED: IBUPROFEN 600 MG (MOTRIN) TAB PO ONE (23:34)
[2021-03-31] MEDS: IBUPROFEN 600 MG (MOTRIN) TAB PO SCH (23:49)
[2021-04-01 04:00] VITALS: BP 112/75
[2021-04-01] MEDS: ACETAMINOPHEN 500 MG TAB (TYLENOL) PO SCH ×2 (05:40→13:54)
[2021-04-01 06:10] LABS: BASOPHILS # (AUTO) 0.1 10^3/uL (0.0-0.1); BASOPHILS % (AUTO) 0 % (0-10); EOSINOPHILS # (AUTO) 0.2 10^3/uL (0.0-0.3); EOSINOPHILS % (AUTO) 1 % (0-10); HEMATOCRIT 28 % (35-52); HEMOGLOBIN 9.3 g/dL (11.5-16.0); LYMPHOCYTES # (AUTO) 2.4 10^3/uL (1.0-4.0); LYMPHOCYTES % (AUTO) 17 % (12-44); MEAN CORPUSCULAR HEMOGLOBIN 32 pg (25-34); MEAN CORPUSCULAR HGB CONC 34 g/dL (32-36); MEAN CORPUSCULAR VOLUME 95 fL (80-99); MEAN PLATELET VOLUME 9.6 fL (9.0-12.2); MONOCYTES # (AUTO) 1.1 10^3/uL (0.0-1.0); MONOCYTES % (AUTO) 7 % (0-12); NEUTROPHILS # (AUTO) 10.5 10^3/uL (1.8-7.8); NEUTROPHILS % (AUTO) 74 % (42-75); PLATELET COUNT 276 10^3/uL (130-400); WHITE BLOOD COUNT 14.4 10^3/uL (4.3-11.0)
[2021-04-01 08:00] VITALS: BP 114/57
[2021-04-01] MEDS: DOCUSATE SODIUM 100 MG (COLACE) CAP PO SCH ×2 (08:23→21:50)
[2021-04-01] MEDS: amLODIPine 2.5MG (NORVASC) TAB PO SCH (08:23)
--- NOTE | 2021-04-01 09:37 | Postpartum Progress Note ---
Note Note Day # 1 Subjective: Patient is without complaints. Ambulating, voiding. Tolerating a regular diet without nausea or vomiting. Normal lochia. Pain is well controlled with oral pain medications. Objective: Physical Exam: General - Alert and oriented, no apparent distress Abdomen - Soft, appropriately tender to palpation, non-distended, fundus firm at umbilicus; incision c/d/i Extremities - no edema, negative Krystal's bilaterally Assessment: Post- day # 1, status post PLTCS. Recovering well, hemodynamically stable Acute blood loss anemia Plan: Routine care. Encourage breast feeding. Encourage ambulation. Ferrous sulfate supplementation. Plan for discharge tomorrow Vitals - Labs Vital Signs - I&O Vital Signs Date Time Temp Pulse Resp B/P (MAP) Pulse Ox O2 Delivery O2 Flow Rate FiO2 04/01/21 08:00 36.3 77 16 114/57 (76) 97 Room Air 04/01/21 04:00 36.1 84 18 112/75 (87) 98 Room Air 03/31/21 23:53 36.2 78 18 112/51 (71) 96 Room Air 03/31/21 20:00 36.9 94 18 126/59 (81) 98 Room Air 03/31/21 16:07 37.1 98 16 118/68 (85) 100 03/31/21 12:25 36.4 84 16 118/54 (75) 97 Labs Laboratory Tests 04/01/21 05:49: White Blood Count 14.4H, Red Blood Count 2.89L, Hemoglobin 9.3#L, Hematocrit 28L , Mean Corpuscular Volume 95, Mean Corpuscular Hemoglobin 32, Mean Corpuscular Hemoglobin Concent 34, Red Cell Distribution Width 13.7, Platelet Count 276, Mean Platelet Volume 9.6, Immature Granulocyte % (Auto) 1, Neutrophils (%) (Auto) 74, Lymphocytes (%) (Auto) 17, Monocytes (%) (Auto) 7, Eosinophils (%) (Auto) 1, Basophils (%) (Auto) 0, Neutrophils # (Auto) 10.5H, Lymphocytes # (Auto) 2.4, Monocytes # (Auto) 1.1H, Eosinophils # (Auto) 0.2, Basophils # (Auto) 0.1, Immature Granulocyte # (Auto) 0.2H SHARLA SOLIZ MANAGER CONSUMER Apr 01, 2021 09:37
--- NOTE | 2021-04-01 09:40 | Discharge Inst-Women's Service ---
Discharge Inst-Women's Serv Depart Medication/Instructions New, Converted or Re-Newed RX: Transmitted to Pharmacy Consults/Follow Up Additional Follow Up: Yes Orders/Referrals Incision check in 1 wk and 6wk PP appt Activity Activity: Activity as Tolerated Driving Instructions: No Driving for 1 Week NO SMOKING: NO SMOKING Nothing Inside Vagina: No Douching, No Reubens, No Tampons Diet Discharge Diet: No Restrictions Symptoms to Report to : Pain Increased, Fever Over 101 Degrees F, Vaginal Bleeding Increase For Any Problems or Questions: Contact Your Physician Skin/Wound Care Infection Signs and Symptoms: Increased Redness, Increased Drainage, Increased Swelling, Temperature Above 101 F Operative Area Clean and Dry: Keep Incision Clean/Dry Stitches/Meno/Dermabond: Dermabond Bathing Instructions: SHARLA Rios APRN Apr 01, 2021 09:40
[2021-04-01] MEDS ORDERED: DOCU100C37 PO (13:31)
[2021-04-01] MEDS ORDERED: OXC5T PO (13:31)
[2021-04-01] MEDS ORDERED: IBUP-844 PO (13:31)
[2021-04-01] MEDS ORDERED: ACET-93 PO (13:31)
--- NOTE | 2021-04-01 13:32 | Short Stay Summary ---
Discharge Summary Hospital Course Hospital Course Date of Admission: Mar 30, 2021 at 06:55 Admission Diagnosis : Family Physician/Provider: Alcon Roman DO Date of Discharge: 04/01/21 Discharge Diagnosis: [ ] Hospital Course: [ ] Labs and Pending Lab Test: Laboratory Tests 04/01/21 05:49: White Blood Count 14.4H, Red Blood Count 2.89L, Hemoglobin 9.3#L, Hematocrit 28L , Mean Corpuscular Volume 95, Mean Corpuscular Hemoglobin 32, Mean Corpuscular Hemoglobin Concent 34, Red Cell Distribution Width 13.7, Platelet Count 276, Mean Platelet Volume 9.6, Immature Granulocyte % (Auto) 1, Neutrophils (%) (Auto) 74, Lymphocytes (%) (Auto) 17, Monocytes (%) (Auto) 7, Eosinophils (%) (Auto) 1, Basophils (%) (Auto) 0, Neutrophils # (Auto) 10.5H, Lymphocytes # (Auto) 2.4, Monocytes # (Auto) 1.1H, Eosinophils # (Auto) 0.2, Basophils # (Auto) 0.1, Immature Granulocyte # (Auto) 0.2H Home Meds Active Docusate Sodium 100 Mg Capsule 100 Mg PO BID Acetaminophen 500 Mg Tablet 1,000 Mg PO Q8HR Oxyir Tablet (Oxycodone HCl) 5 Mg Tab 5 Mg PO Q4HR PRN Ibu (Ibuprofen) 600 Mg Tablet 600 Mg PO Q6HR Reported Tablet ( Vit/Iron Fumarate/FA) 1 Each Tablet 1 Each PO DAILY Calcium 600 + Vit D Tablet (Calcium Carbonate/Vitamin D3) 1 Each Tablet 1 Each PO DAILY Amlodipine Besylate 2.5 Mg Tablet 2.5 Mg PO DAILY Discharge Instructions Discharge Diet: No Restrictions Discharge Physical Examination Allergies: Coded Allergies: cephalexin (Verified Allergy, Severe, RASH, 08/18/19) Discharge Summary Date of Admission Mar 30, 2021 at 06:55 Date of Discharge ALCON ROMAN DO Apr 01, 2021 13:32
[2021-04-01 13:52] VITALS: BP 109/57
[2021-04-01 20:01] VITALS: BP 128/58
[2021-04-02 03:31] VITALS: BP 116/55
[2021-04-02] MEDS: amLODIPine 2.5MG (NORVASC) TAB PO SCH (08:34)
[2021-04-02] MEDS: DOCUSATE SODIUM 100 MG (COLACE) CAP PO SCH ×2 (08:34→19:55)
[2021-04-02 10:00] VITALS: BP 123/72
[2021-04-02] MEDS: IBUPROFEN 600 MG (MOTRIN) TAB PO SCH ×2 (12:17→19:50)
[2021-04-02] MEDS: ACETAMINOPHEN 500 MG TAB (TYLENOL) PO SCH ×2 (12:18→19:50)
[2021-04-02 16:00] VITALS: BP 130/74
[2021-04-02 19:50] VITALS: BP 106/62
[2021-04-03 02:30] VITALS: BP 110/55
[2021-04-03 11:10] VITALS: BP 95/57
== END 2021-04-03 17:00 | disposition home or self-care (01) | DRG 787 ==
LOC: LDRP 06:55
PROVIDERS: ADMIT Obstetrics & Gynecology; ATTEND Obstetrics & Gynecology
PROC: 3E033VJ Introduction of Other Hormone into Peripheral Vein, Percutaneous Approach (ICD-10-PCS; 2021-03-30)
PROC: 10D00Z1 Extraction of Products of Conception, Low, Open Approach (ICD-10-PCS; principal; 2021-03-31 00:36)
DX: O13.4 Gestational [pregnancy-induced] hypertension without significant proteinuria, complicating childbirth (principal); D62 Acute posthemorrhagic anemia; O64.1XX0 Obstructed labor due to breech presentation, not applicable or unspecified; Z3A.39 39 weeks gestation of pregnancy; Z37.0 Single live birth; Z88.1 Allergy status to other antibiotic agents; O90.81 Anemia of the puerperium; Z79.899 Other long term (current) drug therapy; O99.52 Diseases of the respiratory system complicating childbirth; J45.909 Unspecified asthma, uncomplicated
CPT/HCPCS: 36415; 85025; 86850; 86900; 86901; 94664

== ENCOUNTER 2021-04-20 02:06 | Emergency (ER) | payer OTHER, MEDICAID ==
[~2021-04-20] VITALS: Ht 167 cm; Wt 116.0 kg
[~2021-04-20 02:06] MED LIST changes: +ACET-93 PO; +DOCU100C37 PO; +IBUP-844 PO; +OXC5T PO
[2021-04-20 02:26] LABS: BILIRUBIN,URINE NEGATIVE (NEGATIVE); CLARITY,URINE CLEAR; COLOR,URINE YELLOW; GLUCOSE, URINE (UA) NEGATIVE (NEGATIVE); KETONES,URINE NEGATIVE (NEGATIVE); LEUKOCYTE ESTERASE ,URINE 2+ (NEGATIVE); NITRITE,URINE NEGATIVE (NEGATIVE); PROTEIN,URINE NEGATIVE (NEGATIVE)
[2021-04-20 02:33] LABS: BASOPHILS # (AUTO) 0.1 10^3/uL (0.0-0.1); BASOPHILS % (AUTO) 1 % (0-10); EOSINOPHILS # (AUTO) 0.3 10^3/uL (0.0-0.3); EOSINOPHILS % (AUTO) 4 % (0-10); HEMATOCRIT 37 % (35-52); HEMOGLOBIN 11.9 g/dL (11.5-16.0); LYMPHOCYTES % (AUTO) 33 % (12-44); MEAN CORPUSCULAR HEMOGLOBIN 30 pg (25-34); MEAN CORPUSCULAR HGB CONC 33 g/dL (32-36); MEAN CORPUSCULAR VOLUME 93 fL (80-99); MEAN PLATELET VOLUME 8.7 fL (9.0-12.2); MONOCYTES # (AUTO) 0.7 10^3/uL (0.0-1.0); MONOCYTES % (AUTO) 8 % (0-12); NEUTROPHILS # (AUTO) 4.8 10^3/uL (1.8-7.8); NEUTROPHILS % (AUTO) 54 % (42-75); PLATELET COUNT 472 10^3/uL (130-400); WHITE BLOOD COUNT 8.9 10^3/uL (4.3-11.0)
[2021-04-20 02:38] LABS: POTASSIUM 4.1 MMOL/L (3.6-5.0)
[2021-04-20 02:38] LABS: BACTERIA,URINE TRACE /HPF; SQUAMOUS EPITHELIAL CELL,UR 0-2 /HPF
[2021-04-20 02:39] LABS: CALCIUM 9.1 MG/DL (8.5-10.1)
--- NOTE | 2021-04-20 02:40 | ED Abdominal Pain ---
General Chief Complaint: Back Problems Stated Complaint: UPPER BACK PAIN,3 WEEKS Source of Information: Patient History of Present Illness Date Seen by Provider: Apr 20, 2021 Time Seen by Provider: 02:25 Initial Comments PT ARRIVES VIA POV FROM HOME C/O SEVERE PAIN IN RIGHT FLANK, RADIATING TO RIGHT UPPER QUADRANT PAIN BEGAN 4-5 HOURS AGO, AND IS CONSTANT NOTHING WORSENS OR IMPROVES PAIN HAS NOT TAKEN ANYTHING FOR PAIN C/O NAUSEA AND HAS VOMITED X 8 NO FEVER NO URINARY SYMPTOMS PT DELIVERED VIA ON 03/31/21 FOR BREECH PRESENTATION NO COMPLICATIONS PT IS HAVING LIGHT BLEEDING OFF AND ON NO ABNORMAL DISCHARGE NO PELVIC PAIN PT IS NOT NO HISTORY OF SIMILAR NO PRIOR GI PROBLEMS OR OTHER SURGERIES PCP: [facility] [employer] [facility]: DR. ROMAN Allergies and Home Medications Allergies Coded Allergies: cephalexin (Verified Allergy, Severe, RASH, 08/18/19) Patient Home Medication List Home Medication List Reviewed: Yes Acetaminophen (Acetaminophen) 500 Mg Tablet, 1,000 MG PO Q8HR Prescribed by: ALCON ROMAN on 04/01/21 1331 Amlodipine Besylate (Amlodipine Besylate) 2.5 Mg Tablet, 2.5 MG PO DAILY, (Reported) Entered as Reported by: ROLANDO ROSS on 02/03/21 1530 Calcium Carbonate/Vitamin D3 (Calcium 600 + Vit D Tablet) 1 Each Tablet, 1 EACH PO DAILY, (Reported) Entered as Reported by: ROLANDO ROSS on 02/03/21 1530 Docusate Sodium (Docusate Sodium) 100 Mg Capsule, 100 MG PO BID Prescribed by: ALCON ROMAN on 04/01/21 1331 Hydrocodone/Acetaminophen (Hydrocodone-Acetamin 5-325 mg) 1 Each Tablet, 1 EACH PO Q4-6 HOURS PRN for PAIN Prescribed by: MARY DIEGO on 04/20/21 0344 Ibuprofen (Ibu) 600 Mg Tablet, 600 MG PO Q6HR Prescribed by: ALCON ROMAN on 04/01/21 1331 Ondansetron (Ondansetron Odt) 4 Mg Tab.rapdis, 4 MG PO Q4H Prescribed by: MARY DIEGO on 04/20/21 0343 Oxycodone Hcl (Oxyir Tablet) 5 Mg Tab, 5 MG PO Q4HR PRN for PAIN-SEE DOSE INSTRUCTIONS Prescribed by: ALCON ROMAN on 04/01/21 1332 Pantoprazole Sodium (Protonix) 40 Mg Tablet.dr, 40 MG PO DAILY Prescribed by: MARY DIEGO on 04/20/21 0343 Vit/Iron Fumarate/FA ( Tablet) 1 Each Tablet, 1 EACH PO DAILY, (Reported) Entered as Reported by: ROLANDO ROSS on 02/03/21 1531 Review of Systems Review of Systems Constitutional: no symptoms reported Respiratory: No Symptoms Reported Cardiovascular: No Symptoms Reported Gastrointestinal: See HPI, Abdominal Pain, Nausea, Vomiting Genitourinary: See HPI Musculoskeletal: see HPI, back pain Skin: no symptoms reported Psychiatric/Neurological: No Symptoms Reported Endocrine: No Symptoms Reported Hematologic/Lymphatic: No Symptoms Reported Past Xkeyuqy-Kqxies-Gaygco Hx Immunizations Up To Date Tetanus Booster (TDap): Less than 5yrs Seasonal Allergies Seasonal Allergies: Yes Past Medical History Surgeries: Yes Section Respiratory: Yes Asthma Cardiac: No Neurological: Yes Headaches /Migraines : No Female Reproductive Disorders: Ovarian Cyst Genitourinary: No Gastrointestinal: No Musculoskeletal: No Endocrine: No HEENT: No Cancer: No Psychosocial: No Integumentary: No Blood Disorders: No Adverse Reaction/Blood Tranf: No Family Medical History PAST SURGICAL HISTORY: - 03/31/21 Physical Exam Vital Signs Vital Signs - First Documented 04/20/21 05:16 Pulse 92 Resp 16 B/P (MAP) 117/79 Pulse Ox 98 O2 Delivery Room Air Capillary Refill : Height/Weight/BMI Height: '" Weight: lbs. oz. kg; 49.22 BMI Method: General Appearance: obese, other (ANXIOUS, MILDLY HYPERVENTILATING, AND ROCKING BACK AND FORTH--LOOKS UNCOMFORTABLE) Respiratory: normal breath sounds, no respiratory distress, no accessory muscle use Cardiovascular: regular rate, rhythm, no murmur Gastrointestinal: soft; No guarding, No rebound; tenderness (RIGHT FLANK AND RIGHT UPPER QUADRANT TENDERNESS. ); No hernia, No mass; other ( SITE APPEARS NORMAL. 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, no motor/sensory deficits, alert, oriented x 3 Skin: normal color, warm/dry; No rash; tattoos/piercings Progress/Results/Core Measures Results/Orders Lab Results Laboratory Tests Test 04/20/21 02:16 04/20/21 02:18 Range/Units Urine Color YELLOW Urine Clarity CLEAR Urine pH 6.0 5-9 Urine Specific Baudette 1.020 1.016-1.022 Urine Protein NEGATIVE NEGATIVE Urine Glucose (UA) NEGATIVE NEGATIVE Urine Ketones NEGATIVE NEGATIVE Urine Nitrite NEGATIVE NEGATIVE Urine Bilirubin NEGATIVE NEGATIVE Urine Urobilinogen 0.2 < = 1.0 MG/DL Urine Leukocyte Esterase 2+ H NEGATIVE Urine RBC (Auto) NEGATIVE NEGATIVE Urine RBC NONE /HPF Urine WBC 2-5 /HPF Urine Squamous Epithelial Cells 0-2 /HPF Urine Crystals NONE /LPF Urine Bacteria TRACE /HPF Urine Casts NONE /LPF Urine Mucus NEGATIVE /LPF Urine Culture Indicated NO White Blood Count 8.9 4.3-11.0 10^3/uL Red Blood Count 3.91 3.80-5.11 10^6/uL Hemoglobin 11.9 11.5-16.0 g/dL Hematocrit 37 35-52 % Mean Corpuscular Volume 93 80-99 fL Mean Corpuscular Hemoglobin 30 25-34 pg Mean Corpuscular Hemoglobin Concent 33 32-36 g/dL Red Cell Distribution Width 12.5 10.0-14.5 % Platelet Count 472 H 130-400 10^3/uL Mean Platelet Volume 8.7 L 9.0-12.2 fL Immature Granulocyte % (Auto) 0 % Neutrophils (%) (Auto) 54 42-75 % Lymphocytes (%) (Auto) 33 12-44 % Monocytes (%) (Auto) 8 0-12 % Eosinophils (%) (Auto) 4 0-10 % Basophils (%) (Auto) 1 0-10 % Neutrophils # (Auto) 4.8 1.8-7.8 10^3/uL Lymphocytes # (Auto) 3.0 1.0-4.0 10^3/uL Monocytes # (Auto) 0.7 0.0-1.0 10^3/uL Eosinophils # (Auto) 0.3 0.0-0.3 10^3/uL Basophils # (Auto) 0.1 0.0-0.1 10^3/uL Immature Granulocyte # (Auto) 0.0 0.0-0.1 10^3/uL Sodium Level 139 135-145 MMOL/L Potassium Level 4.1 3.6-5.0 MMOL/L Chloride Level 105 98-107 MMOL/L Carbon Dioxide Level 20 L 21-32 MMOL/L Anion Gap 14 5-14 MMOL/L Blood Urea Nitrogen 16 7-18 MG/DL Creatinine 0.75 0.60-1.30 MG/DL Estimat Glomerular Filtration Rate 93 BUN/Creatinine Ratio 21 Glucose Level 100 70-105 MG/DL Calcium Level 9.1 8.5-10.1 MG/DL Corrected Calcium 9.1 8.5-10.1 MG/DL Total Bilirubin 0.3 0.1-1.0 MG/DL Aspartate Amino Transf (AST/SGOT) 12 5-34 U/L Alanine Aminotransferase (ALT/SGPT) 12 0-55 U/L Alkaline Phosphatase 86 40-136 U/L Total Protein 7.0 6.4-8.2 GM/DL Albumin 4.0 3.2-4.5 GM/DL Amylase Level 54 25-125 U/L Lipase 21 8-78 U/L My Orders Orders - MARY DIEGO DO Ua Culture If Indicated (04/20/21 02:20) Ed Iv/Invasive Line Start (04/20/21 02:27) Amylase (04/20/21 02:27) Cbc With Automated Diff (04/20/21 02:27) Comprehensive Metabolic Panel (04/20/21 02:27) Lipase (04/20/21 02:27) Ketorolac Injection (Toradol Injection) (04/20/21 02:45) Ondansetron Injection (Zofran Injectio (04/20/21 02:45) Ed Iv/Invasive Line Start (04/20/21 02:33) Lactated Ringers (Lr 1000 Ml Iv Solution (04/20/21 02:45) Ct Abd/Pelvis Wo(Kidney Stone) (04/20/21 02:33) Acute Abd Series (04/20/21 02:33) Medications Given in ED Current Medications Medications Dose Ordered Sig/Seamus Route Start Time Stop Time Status Last Admin Dose Admin Ketorolac Tromethamine 30 mg ONCE ONCE IVP 04/20/21 02:45 04/20/21 02:46 DC 04/20/21 02:43 30 MG Lactated Ringer's 1,000 ml @ 0 mls/hr Q0M ONCE IV 04/20/21 02:45 04/20/21 02:46 DC 04/20/21 02:43 0 MLS/HR Ondansetron HCl 4 mg ONCE ONCE IVP 04/20/21 02:45 04/20/21 02:46 DC 04/20/21 02:43 4 MG Vital Signs/I&O 04/20/21 05:16 Pulse 92 Resp 16 B/P (MAP) 117/79 Pulse Ox 98 O2 Delivery Room Air Progress Progress Note : Progress Note GIVEN IV FLUIDS, TORADOL AND ZOFRAN-SYMPTOMS RESOLVED MARKED DELAY IN OBTAINING CT REPORT Diagnostic Imaging Comments PER RADIOLOGIST REPORTS AT 0506: ABDOMEN XRAYS-- Lungs are clear. There are no effusions or pneumothoraces. There is no intraperitoneal free air. Bowel gas pattern is normal. There are no pathologic masses or calcifications. IMPRESSION: No acute abnormality seen in the abdomen CT ABDOMEN/PELVIS-- Lung bases are clear. Liver appears normal. There are a few small stones in the gallbladder. There is no appreciable gallbladder wall thickening. Common duct is not dilated. The pancreas is normal. Spleen is not enlarged. Adrenals are normal. Kidneys appear normal. Small bowel is not dilated. Appendix is normal. Colon is unremarkable. Uterus is mildly enlarged. Adnexa unremarkable. There is no intraperitoneal free air or free fluid. Urinary bladder is normal. IMPRESSION: Cholecystolithiasis. Fecal stasis. Kidneys and ureters are unremarkable. Reviewed: Reviewed by Me Departure Impression Primary Impression: Cholelithiasis Additional Impression: 3 WEEKS POST Disposition: 01 HOME, SELF-CARE Condition: Improved Departure-Patient Inst. Decision time for Depature: 05:06 Referrals: CARLY HARRIS ANGELA C DO (PCP/Family) Primary Care Physician Patient Instructions: Gallstones ED Add. Discharge Instructions: LOTS OF CLEAR LIQUIDS NO HIGH FAT/GREASY,SPICY OR ACIDIC FOOD OR DRINK FOLLOW UP WITH DR. HARRIS, SURGEON, FOR FURTHER CARE--CALL THIS AM FOR APPOINTMENT RETURN TO ER IF SYMPTOMS WORSEN All discharge instructions reviewed with patient and/or family. Voiced understa nding. Scripts Hydrocodone/Acetaminophen (Hydrocodone-Acetamin 5-325 mg) 1 Each Tablet 1 EACH PO Q4-6 HOURS PRN for PAIN, #20 TAB Prov: MARY DIEGO DO 04/20/21 Pantoprazole Sodium (Protonix) 40 Mg Tablet. 40 MG PO DAILY, #15 TAB Prov: MARY DIEGO DO 04/20/21 Ondansetron (Ondansetron Odt) 4 Mg Tab.rapdis 4 MG PO Q4H for Nausea/Vomiting, #10 TAB Prov: MARY DIEGO DO 04/20/21 MARY DIEGO DO Apr 20, 2021 02:40
[2021-04-20 02:42] LABS: BILIRUBIN,TOTAL 0.3 MG/DL (0.1-1.0)
[2021-04-20 02:44] LABS: CREATININE SERUM 0.75 MG/DL (0.60-1.30)
[2021-04-20] MEDS ORDERED: ONDANSETRON 4 MG/2 ML (SDV) Z0FRAN IVP ONE (02:45)
[2021-04-20] MEDS ORDERED: KETOROLAC 30 MG/ML VIAL IVP ONE (02:45)
[2021-04-20] MEDS ORDERED: LACTATED RINGERS 1,000 ML IV ONE (02:45)
[2021-04-20] MEDS ORDERED: ACHD5005 PO (03:43)
[2021-04-20] MEDS ORDERED: PANT40TA2 PO (03:43)
[2021-04-20] MEDS ORDERED: ONDA4TAB11 PO (03:43)
--- NOTE | 2021-04-20 04:59 | Diagnostic Imaging Report ---
Indication: Mid back pain Abdomen series PA chest, supine and upright abdominal images are obtained Lungs are clear. There are no effusions or pneumothoraces. There is no intraperitoneal free air. Bowel gas pattern is normal. There are no pathologic masses or calcifications. IMPRESSION: No acute abnormality seen in the abdomen Dictated by: Dictated on workstation # [id number]
--- NOTE | 2021-04-20 05:03 | Diagnostic Imaging Report ---
PROCEDURE: CT urinary tract, rule out kidney stone. TECHNIQUE: Multiple contiguous axial images were obtained through the abdomen and pelvis without the use of intravenous contrast. Auto Exposure Controls were utilized during the CT exam to meet ALARA standards for radiation dose reduction. INDICATION: Flank pain Lung bases are clear. Liver appears normal. There are a few small stones in the gallbladder. There is no appreciable gallbladder wall thickening. Common duct is not dilated. The pancreas is normal. Spleen is not enlarged. Adrenals are normal. Kidneys appear normal. Small bowel is not dilated. Appendix is normal. Colon is unremarkable. Uterus is mildly enlarged. Adnexa unremarkable. There is no intraperitoneal free air or free fluid. Urinary bladder is normal. IMPRESSION: Cholecystolithiasis. Fecal stasis. Kidneys and ureters are unremarkable. Dictated by: Dictated on workstation # [id number]
[2021-04-20 05:18] VITALS: BP 142/106
== END 2021-04-20 05:16 | disposition home or self-care (01) ==
LOC: EDUNIT# 02:06 → ER 02:09
DX: K80.20 Calculus of gallbladder without cholecystitis without obstruction (principal); J45.909 Unspecified asthma, uncomplicated; E66.9 Obesity, unspecified; Z68.42 Body mass index [BMI] 45.0-49.9, adult
CPT/HCPCS: 36415; 74022; 74176; 80053; 81000; 82150; 83690; 85025